=== PATIENT | male | born 1940 ===

== ENCOUNTER 2023-03-12 17:54 | Inpatient (IN) | payer OTHER, SELFPAY ==
--- NOTE | ~2023-03-12 | XR_ITS ---
EXAMINATION: XR CHEST CLINICAL INFORMATION: Low tube, pneumonia. COMPARISON: Chest 03/12/2023 TECHNIQUE: Frontal view of the chest was obtained. FINDINGS: The lungs are well-expanded with patchy opacity seen in the right lung likely pneumonia. The left lung is clear. The heart size and pulmonary vascularity is normal. No gross bony abnormality seen. There is solitary intraspinal electrode noted. XR/XR chest 1V IMPRESSION: Patchy opacity right lung likely infiltrate versus atelectasis.
--- NOTE | ~2023-03-12 | XR_ITS ---
EXAMINATION: XR CHEST CLINICAL INFORMATION: Cough. COMPARISON: None available. TECHNIQUE: Frontal view of the chest was obtained. FINDINGS: The cardiomediastinal silhouette is within normal limits. There is diffuse right-sided infiltrate change. The left lung is clear. The bony structures and soft tissues are unremarkable. XR/XR chest 1V IMPRESSION: Diffuse right lung infiltrate most consistent with pneumonia.
[2023-03-12 18:01] VITALS: BP 140/74; BP 142/78; PULSE 110; PULSE 95; RESP 29; O2SAT 90; O2SAT 93; BMI 25.3
[2023-03-12 18:08] VITALS: BP 143/70; PULSE 122; RESP 27; O2SAT 94
--- NOTE | 2023-03-12 18:10 | ED_ITS ---
HPI - General Adult General Chief complaint: Fever Stated complaint: fever,wheezing,coughing,hyperglycemia Time Seen by Provider: 03/12/23 18:04 Source: EMS and RN notes reviewed Mode of arrival: EMS Limitations: altered mental status History of Present Illness HPI narrative: Patient came from [facility] with history of right MCA CVA ,dysphagia and aphasia paroxysmal AFib not on anticoagulation, systolic heart failure, COPD came here for high-grade 103 degrees with hypoxia saturating 85% at room air blood sugar reading high on arrival POC was 444 no vomiting no diarrhea limited HPI because of aphasia Related Data Home Medications Medication Instructions Recorded Confirmed amantadine HCl 50 mg/5 mL oral 100 mg PO DAILY 03/12/23 03/12/23 solution aspirin 81 mg chewable tablet 81 mg PO DAILY 03/12/23 03/12/23 cyanocobalamin (vitamin B-12) 100 100 mcg PO DAILY 03/12/23 03/12/23 mcg tablet famotidine 20 mg tablet 20 mg PO BID 03/12/23 03/12/23 fluticasone propionate 115 2 puff inhalation BID 03/12/23 03/12/23 mcg-salmeterol 21 mcg/actuation HFA inhaler (Advair HFA) hydroxyzine HCl 10 mg tablet 10 mg PO TID PRN PRURITIS 03/12/23 03/12/23 insulin glargine 100 unit/mL (3 10 unit subcut QPM 03/12/23 03/12/23 mL) subcutaneous pen insulin lispro 100 unit/mL 0 sliding scale dose subcut TIDAC 03/12/23 03/12/23 subcutaneous pen levothyroxine 50 mcg tablet 50 mcg PO DAILY 03/12/23 03/12/23 magnesium oxide 400 mg PO DAILY 03/12/23 03/12/23 melatonin 3 mg tablet 3 mg PO BEDTIME 03/12/23 03/12/23 metformin 1,000 mg tablet 1,000 mg PO BID 03/12/23 03/12/23 metoprolol tartrate 25 mg tablet 25 mg PO BID 03/12/23 03/12/23 sertraline 50 mg tablet 50 mg PO DAILY 03/12/23 03/12/23 tamsulosin 0.4 mg capsule 0.4 mg PO BEDTIME 03/12/23 03/12/23 thiamine HCl (vitamin B1) 100 mg 100 mg PO DAILY 03/12/23 03/12/23 tablet Allergies Allergy/AdvReac Type Severity Reaction Status Date / Time latex Allergy Unknown Unknown Verified 03/12/23 18:15 atorvastatin [From Lipitor] AdvReac Unknown Unknown Verified 03/12/23 18:15 Review of Systems 2 Review of Systems: Yes Unobtainable due to mental condition [facility] Past Medical History Medical History (Updated 03/13/23 @ 01:11 by Jae Babb MD) Type 2 diabetes mellitus Hypertension Aphasia COPD (chronic obstructive pulmonary disease) Paroxysmal A-fib Chronic ischemic right MCA stroke Social History Social History Alcohol intake: never Smoked in Last 30 Days: No Use of substances other than those prescribed or required for medical reasons: No Advance Directives: No Advance Directives Information Provided: No Physical Exam ED Vital Signs: Vital Signs - 24 hr 03/12/23 18:01 03/12/23 18:08 03/12/23 18:16 Temperature 102.3 F H Pulse Rate 110 H 122 H Respiratory Rate 29 H 27 H Blood Pressure 140/74 H 143/70 H Pulse Oximetry 90 L 94 Oxygen Delivery Method Room Air Oxymask Oxygen Flow Rate 4 03/12/23 20:56 Temperature 100.6 F H Pulse Rate 102 H Respiratory Rate 20 Blood Pressure 102/56 L Pulse Oximetry 96 Oxygen Delivery Method Oxymask Oxygen Flow Rate 4 BMI result Body Mass Index 25.3 Appearance: Alert. And awake aphasic. No acute distress. Eyes: PERRLA, No Nystagmus ENT: Pharynx normal. Oral Mucosa moist Neck: Normal inspection. Neck supple. CVS: Tachycardia++ irregular irregular rate no murmur or gallop Pulses normal. Respiratory: No respiratory distress. Equal air entry bilateral, bilateral crackles++ Abdomen: Soft and nontender. Bowel sounds are present, no mass palpable, no CVA tenderness Skin: Skin warm and dry. Normal skin color. Normal skin turgor. Extremities: No lower extremity edema. No calf tenderness Neuro: Alert and awake left-sided weakness aphasic Medications Administered Generic Name Dose Route Start Last Admin Trade Name Freq PRN Reason Stop Dose Admin Insulin Human Lispro 0 unit 03/13/23 00:15 03/13/23 00:47 Insulin Lispro 100 Unit/Ml 3 Ml Vial SUBCUT Not Given [facility]AC[facility] Protocol Discontinued Medications Generic Name Dose Route Start Last Admin Trade Name Reyes PRN Reason Stop Dose Admin Acetaminophen 650 mg 03/12/23 18:18 03/12/23 19:20 Acetaminophen Supp 650 Mg Supp.Rect NM 03/12/23 18:19 650 mg ONCE ONE Administration Sodium Chloride 2,500 mls @ 833.3333 mls/hr 03/12/23 18:19 03/12/23 20:56 Ns IV 03/12/23 21:18 Infused .Q3H STA Infusion Ceftriaxone Sodium 1 gm/ 50 mls @ 100 mls/hr 03/12/23 18:19 03/12/23 19:52 Sodium Chloride IV 03/12/23 18:48 Infused ONCE ONE Infusion Azithromycin 500 mg/ Sodium 250 mls @ 125 mls/hr 03/12/23 20:18 03/12/23 23:17 Chloride IV 03/12/23 22:17 Infused ONCE ONE Infusion Insulin Human Lispro 14 unit 03/12/23 19:04 03/12/23 19:20 Insulin Lispro 100 Unit/Ml 3 Ml Vial SUBCUT 03/12/23 19:05 14 unit ONCE ONE Administration Medical Decision Making Medical Decision Making [facility] Narrative: Patient with right lung infiltrate consistent with pneumonia as a cause of the fever started on IV antibiotic Rocephin and Zithromax IV fluids admit for pneumonia with sepsis patient also has atrial fibrillation with rapid ventricular rate will give Lopressor Differential Diagnosis Differential Diagnoses: The differential diagnosis associated with the presentation includes Sepsis/pneumonia/UTI/hyperglycemia/a fib Admission/Observation Consideration of admission/observation: Escalation of care including admission/observation considered Consult Healthcare Provider Management of the patient was discussed with: Hospitalist Lab Data [facility] Lab Attestation statement: I reviewed the patient's lab results. 03/12/23 18:40 03/12/23 18:40 Labs: Lab Results 03/12/23 03/12/23 03/12/23 Range/Units 18:11 18:35 18:40 WBC 12.6 H (4.8-10.8) X10*3/uL RBC 4.39 L (4.60-5.80) X10*6/uL Hgb 12.2 L (14.0-18.0) g/dl Hct 39.1 L (42.0-52.0) % MCV 89.1 (80.0-98.0) fL MCH 27.8 (27.0-33.0) pg MCHC 31.2 (31.0-36.0) g/dl RDW 16.9 H (11.0-16.0) % Plt Count 230 (160-400) X10*3/uL MPV 13.5 H (9.4-12.4) fL Immature Gran % (Auto) Cancelled Neut % (Auto) Cancelled Lymph % (Auto) Cancelled [place] % (Auto) Cancelled Eos % (Auto) Cancelled Baso % (Auto) Cancelled Lymph # (Auto) Cancelled [place] # (Auto) Cancelled Eos # (Auto) Cancelled Baso # (Auto) Cancelled Abs Immat Gran (auto) Cancelled Absolute Neuts (auto) Cancelled Absolute Nucleated RBC 0.020 H (0.0-0.012) X10*3/uL Nucleated RBC % (auto) 0.2 (0.0-0.2) /100WBC Neutrophils % (Manual) 78 H (45-73) % Band Neutrophils % 9 H (3-5) % Lymphocytes % (Manual) 4 L (20-40) % Monocytes % (Manual) 8 (2-11) % Myelocytes % 1 % Abs Neuts (Manual) 11.0 H (2.0-8.3) X10*3/uL Lymphocytes # (Manual) 0.5 L (1.2-4.9) X10*3/uL Monocytes # (Manual) 1.0 (0.1-1.2) X10*3/uL Myelocytes # 0.1 X10*/uL Platelet Estimate NORMAL (NORMAL) Large Platelets PRESENT Plt Morphology Comment NOTED RBC Morphology NORMAL PT 15.0 H (11.1-13.3) SEC INR 1.2 H (0.9-1.1) APTT 31.1 (26.0-36.4) SEC VBG pH 7.46 H (7.32-7.43) VBG pCO2 45 mmHg VBG pO2 33 mmHg VBG HCO3 33 H (22-26) mmol/L VBG O2 Saturation 50.0 % VBG Base Excess 8.2 mmol/L Sodium 142 (135-145) mmol/L Potassium 4.4 (3.3-5.1) mmol/L Chloride 106 (96-108) mmol/L Carbon Dioxide 26 (22-29) mmol/L Anion Gap 14 (12-20) BUN 35 H (9-16) mg/dL Creatinine 1.12 (0.5-1.4) mg/dL Estim Creat Clear Calc 44.2 Estimated GFR > 60 POC Glucose 444 H* (60-115) mg/dL Random Glucose 520 H* (60-115) mg/dL Lactic Acid 2.0 (0.5-2.0) mmol/L Calcium 10.5 H (8.4-10.2) mg/dL Magnesium 1.9 (1.6-2.6) mg/dL Total Bilirubin 0.5 (0.0-1.0) mg/dL AST 14 (5-37) U/L ALT 9 (0-40) U/L Alkaline Phosphatase 150 H (39-117) U/L Troponin I High Sens 21.7 (<3.5-35.0) ng/L B-Natriuretic Peptide 460 H (<100) pg/mL Total Protein 7.6 (6.5-8.0) g/dL Albumin 3.4 L (3.5-5.0) g/dL Urine Color Urine Appearance Urine pH (5.0-9.0) Ur Specific [place] (1.005-1.025) Urine Protein (Neg-Trace) mg/dL Urine Glucose (UA) (Negative) mg/dL Urine Ketones (Negative) mg/dL Urine Blood (Negative) Urine Nitrite (Negative) Ur Leukocyte Esterase (Negative) Urine RBC (0-2) /HPF Urine WBC (0-5) /HPF Ur Squamous Epith Cells (0-2) /HPF Urine Bacteria (None Seen) Hyaline Casts (0-2) /LPF Influenza Type A (PCR) NEGATIVE (Negative) Influenza Type B (PCR) NEGATIVE (Negative) RSV RNA Qual (PCR) NEGATIVE (Negative) SARS-CoV-2 RNA (RT-PCR) NEGATIVE (Negative) 03/12/23 03/12/23 Range/Units 21:20 23:15 WBC (4.8-10.8) X10*3/uL RBC (4.60-5.80) X10*6/uL Hgb (14.0-18.0) g/dl Hct (42.0-52.0) % MCV (80.0-98.0) fL MCH (27.0-33.0) pg MCHC (31.0-36.0) g/dl RDW (11.0-16.0) % Plt Count (160-400) X10*3/uL MPV (9.4-12.4) fL Immature Gran % (Auto) Neut % (Auto) Lymph % (Auto) [place] % (Auto) Eos % (Auto) Baso % (Auto) Lymph # (Auto) [place] # (Auto) Eos # (Auto) Baso # (Auto) Abs Immat Gran (auto) Absolute Neuts (auto) Absolute Nucleated RBC (0.0-0.012) X10*3/uL Nucleated RBC % (auto) (0.0-0.2) /100WBC Neutrophils % (Manual) (45-73) % Band Neutrophils % (3-5) % Lymphocytes % (Manual) (20-40) % Monocytes % (Manual) (2-11) % Myelocytes % % Abs Neuts (Manual) (2.0-8.3) X10*3/uL Lymphocytes # (Manual) (1.2-4.9) X10*3/uL Monocytes # (Manual) (0.1-1.2) X10*3/uL Myelocytes # X10*/uL Platelet Estimate (NORMAL) Large Platelets Plt Morphology Comment RBC Morphology PT (11.1-13.3) SEC INR (0.9-1.1) APTT (26.0-36.4) SEC VBG pH (7.32-7.43) VBG pCO2 mmHg VBG pO2 mmHg VBG HCO3 (22-26) mmol/L VBG O2 Saturation % VBG Base Excess mmol/L Sodium (135-145) mmol/L Potassium (3.3-5.1) mmol/L Chloride (96-108) mmol/L Carbon Dioxide (22-29) mmol/L Anion Gap (12-20) BUN (9-16) mg/dL Creatinine (0.5-1.4) mg/dL Estim Creat Clear Calc Estimated GFR POC Glucose 273 H (60-115) mg/dL Random Glucose (60-115) mg/dL Lactic Acid (0.5-2.0) mmol/L Calcium (8.4-10.2) mg/dL Magnesium (1.6-2.6) mg/dL Total Bilirubin (0.0-1.0) mg/dL AST (5-37) U/L ALT (0-40) U/L Alkaline Phosphatase (39-117) U/L Troponin I High Sens (<3.5-35.0) ng/L B-Natriuretic Peptide (<100) pg/mL Total Protein (6.5-8.0) g/dL Albumin (3.5-5.0) g/dL Urine Color Dark Yellow Urine Appearance Cloudy Urine pH 5.5 (5.0-9.0) Ur Specific [place] >= 1.030 H (1.005-1.025) Urine Protein 100 (2+) H (Neg-Trace) mg/dL Urine Glucose (UA) 250 H (Negative) mg/dL Urine Ketones Trace (Negative) mg/dL Urine Blood Large (3+) H (Negative) Urine Nitrite Negative (Negative) Ur Leukocyte Esterase Small (1+) H (Negative) Urine RBC >20 H (0-2) /HPF Urine WBC 21-50 (0-5) /HPF Ur Squamous Epith Cells 11-20 (0-2) /HPF Urine Bacteria None Seen (None Seen) Hyaline Casts 6-10 (0-2) /LPF Influenza Type A (PCR) (Negative) Influenza Type B (PCR) (Negative) RSV RNA Qual (PCR) (Negative) SARS-CoV-2 RNA (RT-PCR) (Negative) Independent Interpretation I performed an independent interpretation of an: EKG Interpretation: Atrial fibrillation with fast ventricular rate of 114 beats per minute LVH no acute ST-T no acute ischemia Radiology Impression Discussion of test interpretation with radiology: I have reviewed the radiologist's reading. Radiologist Impression: XR/XR chest 1V IMPRESSION: Diffuse right lung infiltrate most consistent with pneumonia. Critical Care Time Critical Care Time Critical Care Time: Yes Total Critical Care Time: 65 Attestation: The patient was critically ill with a high probability of imminent or life threatening deterioration. I spent greater than 70 minutes of discontinuous time evaluating the patient,delivering critical care at the bedside, discussing and evaluating pertinent data with consultants. Critical care time does not include time spent performing separately billable procedures or teaching. Total time spent performing critical care was 65 minutes. Discharge Plan Discharge Clinical Impression: Pneumonia, Sepsis, Atrial fibrillation with rapid ventricular response Patient Disposition: Admitted As Inpatient
[2023-03-12 18:15] LABS: Glucose, Whole Blood 444 mg/dL (60-115)
[2023-03-12 18:16] VITALS: TEMP 39.1
--- NOTE | 2023-03-12 18:18 | ECG_ITS ---
Test Reason : SEPSIS Blood Pressure : / mmHG Vent. Rate : 114 BPM Atrial Rate : 000 BPM P-R Int : 000 ms QRS Dur : 098 ms QT Int : 324 ms P-R-T Axes : 000 -20 095 degrees QTc Int : 446 ms Atrial fibrillation with rapid ventricular response Minimal voltage criteria for LVH, may be normal variant ( Javed product ) Abnormal QRS-T angle, consider primary T wave abnormality Abnormal ECG No previous ECGs available Referred By: Jae Babb Electronically Signed By:GISELLE VALDEZ
[2023-03-12] MEDS: 0.9 % Sodium Chloride 2,500 ML 833.33 ML IV (18:43)
[2023-03-12 18:48] LABS: Venous Blood Gas Refer to POC result
[2023-03-12 18:53] LABS: VBG Base Excess 8.2 mmol/L; VBG HCO3 33 mmol/L (22-26); VBG pCO2 45 mmHg; VBG pH 7.46 (7.32-7.43); VBG pO2 33 mmHg
[2023-03-12 19:04] LABS: Alanine Aminotransferase 9 U/L (0-40); Albumin Level 3.4 g/dL (3.5-5.0); Alkaline Phosphatase 150 U/L (39-117); Anion Gap 14 (12-20); Aspartate Amino Transferase 14 U/L (5-37); Bilirubin Total 0.5 mg/dL (0.0-1.0); Blood Urea Nitrogen 35 mg/dL (9-16); Calcium 10.5 mg/dL (8.4-10.2); Carbon Dioxide 26 mmol/L (22-29); Chloride 106 mmol/L (96-108); Creatinine Clr Calc Pharmacy 44.2; Estimated Glomerular Filt Rate > 60; Glucose Random 520 mg/dL (60-115); Magnesium 1.9 mg/dL (1.6-2.6); Potassium 4.4 mmol/L (3.3-5.1); Sodium 142 mmol/L (135-145); Total Protein 7.6 g/dL (6.5-8.0)
[2023-03-12 19:08] LABS: B Type Natriuretic Peptide 460 pg/mL (<100); Troponin-I High Sensitivity 21.7 ng/L (<3.5-35.0)
[2023-03-12 19:13] LABS: INTERNATIONAL NORM RATIO 1.2 (0.9-1.1)
[2023-03-12 19:16] LABS: Partial Thromboplastin Time 31.1 SEC (26.0-36.4)
[2023-03-12] MEDS: cefTRIAXone sodium 1 GM in 0.9 % Sodium Chloride 50 ML IV (19:20)
[2023-03-12] MEDS: Acetaminophen Supp 650 MG SUPP.RECT PR (19:20)
[2023-03-12] MEDS: Insulin Lispro 100 UNIT/ML 3 ML VIAL 14 UNIT SUBCUT (19:20)
[2023-03-12 19:24] LABS: Influenza A PCR NEGATIVE (Negative); Influenza B PCR NEGATIVE (Negative); Resp Syncy Virus RNA Qual PCR NEGATIVE (Negative); SARS COV2 PCR INHOUSE NEGATIVE (Negative)
[2023-03-12 19:27] LABS: Hematocrit 39.1 % (42.0-52.0); Hemoglobin 12.2 g/dl (14.0-18.0); Mean Corpuscular HGB Conc 31.2 g/dl (31.0-36.0); Mean Corpuscular Hemoglobin 27.8 pg (27.0-33.0); Mean Corpuscular Volume 89.1 fL (80.0-98.0); Mean Platelet Volume 13.5 fL (9.4-12.4); NRBC Pct Auto 0.2 /100WBC (0.0-0.2); Platelet Count 230 X10*3/uL (160-400); Red Blood Count 4.39 X10*6/uL (4.60-5.80); Red Cell Distribution Width 16.9 % (11.0-16.0); White Blood Count 12.6 X10*3/uL (4.8-10.8)
[2023-03-12 19:32] LABS: PLT ABN DIST 1
[2023-03-12 20:01] LABS: Lymphocytes Absolute Manual 0.5 X10*3/uL (1.2-4.9); Lymphocytes Percent Manual 4 % (20-40); Monocytes Percent Manual 8 % (2-11); Myelocytes Absolute 0.1 X10*/uL; Myelocytes Percent 1 %
[2023-03-12 20:02] LABS: Band Neutrophils Percent 9 % (3-5)
[2023-03-12 20:03] LABS: Neutrophils Percent Manual 78 % (45-73)
[2023-03-12 20:04] LABS: Large Platelet PRESENT; Platelet Estimate NORMAL (NORMAL); Platelet Morphology Comment NOTED; RBC Morphology NORMAL
--- NOTE | 2023-03-12 20:35 | PHA.MEDREC ---
Pharmacy Consult ? Medication Reconciliation Pharmacy has completed the medication reconciliation. Patient came from [facility] with medication list. Inna Liu, KarinaD
[2023-03-12] MEDS: Azithromycin 500 MG in 0.9 % Sodium Chloride 250 ML 125 MG IV (20:55)
[2023-03-12 20:56] VITALS: BP 102/56; PULSE 102; RESP 20; TEMP 38.1; O2SAT 96
[2023-03-12 21:26] LABS: Glucose, Whole Blood 273 mg/dL (60-115)
[2023-03-12 23:23] LABS: Appearance Urine Cloudy; Color Urine Dark Yellow; Glucose Urine UA 250 mg/dL (Negative); Leukocyte Esterase Urine Small (1+) (Negative); Nitrite Urine Negative (Negative); PH 5.5 (5.0-9.0); Specific Gravity - Urine >= 1.030 (1.005-1.025); UMIC TRIGGER UACC YES; Urine Blood Large (3+) (Negative); Urine Ketones Trace mg/dL (Negative); Urine Protein 100 (2+) mg/dL (Neg-Trace)
[2023-03-12 23:36] LABS: Bacteria Urine None Seen (None Seen); RBC Urine >20 /HPF (0-2); UACC Culture Trigger YES; WBC Urine 21-50 /HPF (0-5)
[2023-03-13] VITALS (12 sets, daily range): BP systolic 95–124; BP diastolic 47–74; PULSE 77–108; RESP 16–22; TEMP 36.1–38; O2SAT 90–98; BMI 23.2
--- NOTE | 2023-03-13 00:12 | P.HPHOSP_ITS ---
History of Present Illness Date of Service: 03/13/23 Chief Complaint: febrile, short of breath patient is a resident of [facility], [facility] historian at baseline, with history of CVA, hypertension, dysarthria, dysphagia, paroxysmal AFib, BPH, COPD, diabetes, who was sent from [facility] for evaluation of shortness of breath, hypoxic as well as febrile. History is obtained from chart and ED physician. It appears that patient had a fever of 103 at the facility, he was also found to have an O2 in the 80s, was placed on 2 L of oxygen with oxygen improving to 89%. Therefore patient was brought into the hospital. Unable to obtain complete review of system due to patient's dementia and baseline dysarthria On arrival to the ED patient found to have a fever of 102.3, heart rate of 122, respiratory rate of 27, satting 94% on OxyMask Labs are significant for WBC count of tell 0.6, hemoglobin of 12.2, glucose of 500, BNP of 460 no previous for comparison, and UA positive for leukocyte E[place], WBC, bacteria Chest x-ray showed diffuse right lung infiltrate consistent with pneumonia RSV influenza a and COVID-19 negative patient will be admitted for further management Review of Systems 2 Review of Systems: Yes Unobtainable due to mental condition and Unobtainable due to mental status [facility] Medical History Type 2 diabetes mellitus Hypertension Aphasia COPD (chronic obstructive pulmonary disease) Paroxysmal A-fib Chronic ischemic right MCA stroke Social History Alcohol intake: never Smoked in Last 30 Days: No Use of substances other than those prescribed or required for medical reasons: No Advance Directives: No Advance Directives Information Provided: No Meds Allergies Allergy/AdvReac Type Severity Reaction Status Date / Time latex Allergy Unknown Unknown Verified 03/12/23 18:15 atorvastatin [From Lipitor] AdvReac Unknown Unknown Verified 03/12/23 18:15 Home Medications Medication Instructions Recorded Confirmed Last Taken Type amantadine HCl 50 mg/5 mL oral 100 mg PO DAILY 03/12/23 03/12/23 03/12/23 History solution aspirin 81 mg chewable tablet 81 mg PO DAILY 03/12/23 03/12/23 03/12/23 History cyanocobalamin (vitamin B-12) 100 100 mcg PO DAILY 03/12/23 03/12/23 03/12/23 History mcg tablet famotidine 20 mg tablet 20 mg PO BID 03/12/23 03/12/23 03/12/23 History fluticasone propionate 115 2 puff inhalation BID 03/12/23 03/12/23 03/12/23 History mcg-salmeterol 21 mcg/actuation HFA inhaler (Advair HFA) hydroxyzine HCl 10 mg tablet 10 mg PO TID PRN PRURITIS 03/12/23 03/12/23 Unknown History insulin glargine 100 unit/mL (3 10 unit subcut QPM 03/12/23 03/12/23 03/11/23 History mL) subcutaneous pen insulin lispro 100 unit/mL 0 sliding scale dose subcut TIDAC 03/12/23 03/12/23 03/12/23 History subcutaneous pen levothyroxine 50 mcg tablet 50 mcg PO DAILY 03/12/23 03/12/23 03/12/23 History magnesium oxide 400 mg PO DAILY 03/12/23 03/12/23 03/12/23 History melatonin 3 mg tablet 3 mg PO BEDTIME 03/12/23 03/12/23 03/11/23 History metformin 1,000 mg tablet 1,000 mg PO BID 03/12/23 03/12/23 03/12/23 History metoprolol tartrate 25 mg tablet 25 mg PO BID 03/12/23 03/12/23 03/12/23 History sertraline 50 mg tablet 50 mg PO DAILY 03/12/23 03/12/23 03/12/23 History tamsulosin 0.4 mg capsule 0.4 mg PO BEDTIME 03/12/23 03/12/23 03/11/23 History thiamine HCl (vitamin B1) 100 mg 100 mg PO DAILY 03/12/23 03/12/23 03/12/23 History tablet Physical Exam 2 Vital Signs and Narrative: Vital Signs: Last Vital Signs Temp 100.6 F H 03/12/23 20:56 Pulse 102 H 03/12/23 20:56 Resp 20 03/12/23 20:56 BP 102/56 L 03/12/23 20:56 Pulse Ox 96 03/12/23 20:56 O2 Del Method Oxymask 03/12/23 20:56 O2 Flow Rate 4 03/12/23 20:56 BMI result Body Mass Index 25.3 Const: Other: dysarthria, unable to get much history from the patient General: no acute distress Orientation/consciousness: patient oriented x3 Eyes: General: appearance normal, both eyes and all related structures Resp: Other: rhonchi best heard on the right lung Effort & Inspection: normal respiratory effort Auscultation: clear to auscultation bilaterally Cardio: Rate: regular rate Rhythm: regular rhythm GI: Palpation (GI): Soft to palpation Auscultation: normal bowel sounds Skin: General skin exam: no rashes or lesions noted Neuro: General: patient oriented x3 Cognition (Neuro): normal cognition Extrem: General: Yes normal to inspection and Yes no pedal edema Results Labs 03/12/23 18:40 03/12/23 18:40 Labs: Laboratory Results - last 24 hr 03/12/23 03/12/23 03/12/23 18:11 18:35 18:40 MCV 89.1 MCH 27.8 MCHC 31.2 RDW 16.9 H Plt Count 230 MPV 13.5 H Immature Gran % (Auto) Cancelled Neut % (Auto) Cancelled Lymph % (Auto) Cancelled [place] % (Auto) Cancelled Eos % (Auto) Cancelled Baso % (Auto) Cancelled Lymph # (Auto) Cancelled [place] # (Auto) Cancelled Eos # (Auto) Cancelled Baso # (Auto) Cancelled Abs Immat Gran (auto) Cancelled Absolute Neuts (auto) Cancelled Absolute Nucleated RBC 0.020 H Nucleated RBC % (auto) 0.2 Neutrophils % (Manual) 78 H Band Neutrophils % 9 H Lymphocytes % (Manual) 4 L Monocytes % (Manual) 8 Myelocytes % 1 Abs Neuts (Manual) 11.0 H Lymphocytes # (Manual) 0.5 L Monocytes # (Manual) 1.0 Myelocytes # 0.1 Platelet Estimate NORMAL Large Platelets PRESENT Plt Morphology Comment NOTED RBC Morphology NORMAL PT 15.0 H INR 1.2 H APTT 31.1 VBG pH 7.46 H VBG pCO2 45 VBG pO2 33 VBG HCO3 33 H VBG O2 Saturation 50.0 VBG Base Excess 8.2 Anion Gap 14 Estim Creat Clear Calc 44.2 Estimated GFR > 60 POC Glucose 444 H* Random Glucose 520 H* Lactic Acid 2.0 Calcium 10.5 H Magnesium 1.9 Total Bilirubin 0.5 AST 14 ALT 9 Alkaline Phosphatase 150 H B-Natriuretic Peptide 460 H Total Protein 7.6 Albumin 3.4 L Urine Color Urine Appearance Urine pH Ur Specific [place] Urine Protein Urine Glucose (UA) Urine Ketones Urine Blood Urine Nitrite Ur Leukocyte Esterase Urine RBC Urine WBC Ur Squamous Epith Cells Urine Bacteria Hyaline Casts Influenza Type A (PCR) NEGATIVE Influenza Type B (PCR) NEGATIVE RSV RNA Qual (PCR) NEGATIVE SARS-CoV-2 RNA (RT-PCR) NEGATIVE 03/12/23 03/12/23 21:20 23:15 MCV MCH MCHC RDW Plt Count MPV Immature Gran % (Auto) Neut % (Auto) Lymph % (Auto) [place] % (Auto) Eos % (Auto) Baso % (Auto) Lymph # (Auto) [place] # (Auto) Eos # (Auto) Baso # (Auto) Abs Immat Gran (auto) Absolute Neuts (auto) Absolute Nucleated RBC Nucleated RBC % (auto) Neutrophils % (Manual) Band Neutrophils % Lymphocytes % (Manual) Monocytes % (Manual) Myelocytes % Abs Neuts (Manual) Lymphocytes # (Manual) Monocytes # (Manual) Myelocytes # Platelet Estimate Large Platelets Plt Morphology Comment RBC Morphology PT INR APTT VBG pH VBG pCO2 VBG pO2 VBG HCO3 VBG O2 Saturation VBG Base Excess Anion Gap Estim Creat Clear Calc Estimated GFR POC Glucose 273 H Random Glucose Lactic Acid Calcium Magnesium Total Bilirubin AST ALT Alkaline Phosphatase B-Natriuretic Peptide Total Protein Albumin Urine Color Dark Yellow Urine Appearance Cloudy Urine pH 5.5 Ur Specific [place] >= 1.030 H Urine Protein 100 (2+) H Urine Glucose (UA) 250 H Urine Ketones Trace Urine Blood Large (3+) H Urine Nitrite Negative Ur Leukocyte Esterase Small (1+) H Urine RBC >20 H Urine WBC 21-50 Ur Squamous Epith Cells 11-20 Urine Bacteria None Seen Hyaline Casts 6-10 Influenza Type A (PCR) Influenza Type B (PCR) RSV RNA Qual (PCR) SARS-CoV-2 RNA (RT-PCR) Imaging Radiologist's Impressions: Impressions Chest X-Ray 03/12/23 18:53 IMPRESSION: Diffuse right lung infiltrate most consistent with pneumonia. Assessment and Plan (1) Sepsis: Qualifiers: Sepsis type: sepsis due to unspecified organism Sepsis acute organ dysfunction status: without acute organ dysfunction Qualified Code(s): A41.9 - Sepsis, unspecified organism Status: Acute (2) Pneumonia: Qualifiers: Pneumonia type: due to unspecified organism Laterality: right Lung location: unspecified part of lung Qualified Code(s): J18.9 - Pneumonia, unspecified organism Status: Acute (3) Atrial fibrillation with rapid ventricular response: Status: Acute (4) Hyperglycemia due to diabetes mellitus: Status: Acute Plan 83-year-old male with past medical history of CVA, dysphagia, dysarthria comes into the hospital after facility found him to have hypoxia, and fever found to have # sepsis - secondary to pneumonia - has elevated temp, tachycardic, tachypneic - will treat with IV antibiotic - follow cultures # pneumonia - aspiration versus acquired - patient has history of dysphasia - will treat with Zosyn to cover for aspiration organisms - follow cultures # AFib with IV - secondary to above - resolved - resume home aspirin, metoprolol, # hyperglycemia - due to diabetes - will place patient on low-dose sliding scale insulin, hold metformin, continue home insulin # acute UTI - will treat with IV antibiotic - follow cultures # elevated BNP - clinically appears euvolemic - no baseline for comparison - no documented history of - monitor respiratory status and volume status - given 1 dose of Lasix- may require more depending on status - low-sodium diet, strict I&O # Dysphagia - Speech consulted to r/o aspiration - keep npo given patient's need for further management of acute infection patient require minimum 2 nights inpatient hospital stay for further management and monitoring Time Spent With Patient Time: Total time managing care of this patient today ____ minutes. Quality Stroke Does the patient have a stroke diagnosis?: No VTE Prior VTE?: No VTE Risk Level:: Medical - moderate - high VTE Device Contraindication: Treatment Not Indicated VTE Drug Contraindication: N/A - Med Ordered
[2023-03-13 00:50] LABS: Glucose, Whole Blood 72 mg/dL (60-115)
[2023-03-13] MEDS: Metoprolol Tartrate 5 MG/5 ML VIAL IVPUSH (01:27)
--- NOTE | 2023-03-13 07:00 | CA_ITS ---
Transthoracic Echocardiogram Patient (Last, First, Middle): Edgar Arrieta, Gender: Male Date of : 1940 Age: 83 Procedure Date: 03/13/2023 Procedure Type: Transthoracic Echocardiogram Location: ER Height: 165.1 cm Weight: 68.95 kg BSA: 1.76 m2 Heart Rate: bpm BP: 99 / 47 mmHg Hand Finisher: TO Referring MD: Michael Brady MD Hand Miter Operator: Damon Dumont MD Symptoms: CHF? Study Quality: Fair Conclusions: - 1. Mildly reduced LV ejection fraction 45-50% 2. Mildly dilated right ventricle with reduced systolic function 3. Severely dilated left atrium 4. Mild aortic and mitral regurgitation 5. Mildly dilated ascending aorta 4.1 cm 6. Elevated right atrial pressures 7. No gross pericardial effusion Findings Procedure Information The study quality is limited by the patients inability to tolerate the test. Left Ventricle Normal left ventricular cavity size. There is normal left ventricular wall thickness. The left ventricular systolic function is mildly decreased. The visually estimated ejection fraction is between 45-50%. Diastolic function is indeterminate on the basis of available data. Right Ventricle Mildly increased right ventricular cavity size. There is moderately decreased right ventricular systolic function. Atria The left atrium is severely dilated. Interatrial shunt cannot be excluded. The right atrium is moderately dilated. Aortic Valve There is mild calcification of the aortic valve. There is no aortic valve stenosis. There is mild aortic valve regurgitation. Mitral Valve There is mild anterior and moderate posterior mitral leaflet thickening. The posterior mitral leaflet has restricted mobility. There is mild mitral annular calcification. There is mild mitral valve regurgitation. There is no mitral valve stenosis. Pulmonic Valve The pulmonic valve was not well visualized. Tricuspid Valve Likely normal tricuspid valve structure and function. Tricuspid regurgitation envelope is inadequate for calculation of right ventricular systolic pressure. Moderately elevated right atrial pressure. Great Vessels The pulmonary artery was not well visualized. There is mild dilatation of the ascending aorta. Venous The inferior vena cava is mildly dilated and collapses less than 50% with inspiration. Pericardium/Pleural There is no evidence of pericardial effusion. Prior Study Comparison No prior study available for comparison. Measurements 2D Linear Measurements IVSd: 1.14 0.6-0.9/0.6-1.0 cm LVIDd: 4.90 3.9-5.3/4.2-5.9 cm LVIDd Index: 2.78 2.4-3.2/2.2-3.1 cm/m2 LVIDs: 3.60 2.0-3.6 cm LVPWd: 0.80 0.7-1.1 cm LA Diam: 4.60 2.7-3.8/3.0-4.0 cm LAIDs Index: 2.61 1.5-2.3 cm/m2 LV Mass: 265.82 67-162/88-224 g LV Mass Index: 151.04 43-95/49-115 g/m2 LVOT Diam: 2.40 3.0+(-)1.3 cm 2D Systolic Function EF 4C: 45.80 >55% Mitral Valve MV Pk E: 0.80 MV Decel Time: 167.00 E'Lateral: 11.10 E'Medial: 7.83 E/E' Med: 10.20 E/E' Lat: 7.20 PHT: 49.00 MVA PHT: 4.49 Decel Maury: 4.79 Aortic Valve AoV Pk Den: 1.00 AoV Mn Den: 0.64 AoV VTI: 0.15 AoV Pk Grad: 4.00 Aov Mn Grad: 2.00 GIBRAN Cont.VTI: 2.86 LVOT LVOT Pk Den: 0.56 LVOT Mn Den: 0.35 LVOT VTI: 0.09 LVOT Pk Grad: 1.00 LVOT Mn Grad: 1.00 LVOT Diam: 2.40 LVOT Area: 4.52 Diastolic Function MV Pk E: 0.80 E'Medial: 7.83 E/E' Med: 10.20 E' Laterial: 11.10 E/E' Lat: 7.20 Right Ventricle TAPSE (mm): 11.20 TVS' Den: 8.16 Tricuspid Valve RA Press: 8.00 Great Vessels Aorta Sinus of Valsalva: 3.70 2.0-3.5 cm Ao Asc: 4.10 2.1-3.4 cm Updated in Other Vendor System with Status of Final Damon Dumont MD electronically signed on 03/13/2023 2:54:46 PM with status of Final
[2023-03-13 07:24] LABS: Glucose, Whole Blood 181 mg/dL (60-115)
[2023-03-13] MEDS: Heparin Sodium,Porcine 5,000 UNIT/ML VIAL 5000 UNIT SUBCUT ×2 (08:02→20:49)
[2023-03-13] MEDS: Furosemide 40 MG/4 ML VIAL IVPUSH (08:34)
[2023-03-13] MEDS: Albuterol/Iprat 2.5/0.5MG 3 ML AMPUL.NEB INHALE ×4 (08:37→19:58)
[2023-03-13] MEDS: Piperacillin Sodium/Tazobactam 3.375 GM in 0.9 % Sodium Chloride 50 ML IV ×3 (08:45→19:59)
[2023-03-13] MEDS: Metoprolol Tartrate 25 MG TABLET PO ×2 (09:23→20:49)
--- NOTE | 2023-03-13 09:26 | MHC.CM.PN ---
Addendum entered by Kamila Lewis 03/13/23 09:31: PER HER REQUEST, COPY OF IMM WILL BE MAILED TO [facility] AT THE ADDRESS PROVIDED: [place] [id number] TASK SENT TO REGISTRATION TO ADD ADDRESS TO CHART Original Note: PT IS A LTC RESIDENT OF [facility] HIS LEGAL [facility] IS RENAE JONAS [phone] [facility] WAS CONTACTED, MEDICARE RIGHTS WERE DELIVERED TODAY AT 0925 COPY OF [facility] WAS REQUESTED FROM [facility] PCP DARREL NEVAREZ PT WILL RETURN TO [facility] VIA BLS
[2023-03-13 10:12] LABS: Alanine Aminotransferase 6 U/L (0-40); Albumin Level 3.2 g/dL (3.5-5.0); Alkaline Phosphatase 119 U/L (39-117); Anion Gap 17 (12-20); Aspartate Amino Transferase 11 U/L (5-37); Bilirubin Total 0.7 mg/dL (0.0-1.0); Blood Urea Nitrogen 31 mg/dL (9-16); Calcium 10.4 mg/dL (8.4-10.2); Carbon Dioxide 25 mmol/L (22-29); Chloride 109 mmol/L (96-108); Creatinine Clr Calc Pharmacy 60.4; Estimated Glomerular Filt Rate > 60; Glucose Random 225 mg/dL (60-115); Sodium 147 mmol/L (135-145); Total Protein 7.1 g/dL (6.5-8.0)
--- NOTE | 2023-03-13 12:01 | PC.NURSE ---
Addendum entered by Lurdes Jorge RN 03/13/23 12:12: *Correction: IV R bicep, not L arm* Original Note: assumed care of pt at 0700. report taken from JOSE Christy. pt sleeping upon change of shift. pt woke up and taking off oxymask. pt redirected multiple times. pt with temp sensing sanchez at 98.1 core temperature. pt NPO, Anish approved Metoprolol with pudding but held all other po medications until speech consult. Anish approved holding sliding scale insulin for 181 poc due to NPO status Lawanda, RT trial d/c O2 NC after 0800 breathing treatment - advised when dropped below 88% RA to place pt back on O2 1L and titrate as needed. pt desated 84%-86% and placed back on O2 tirtated to 2L. Lawanda gave 1200 breathing treatment, placed pt back on 2L NC. speech consult completed - puree and nectar diet. 20G IV to L arm, patent. echocardiogram completed with help of tech at bedside to redirect pt. pt currently resting quietly on stretcher in no apparent distress. report given to JOSE Del Toro in [facility]. awaiting transport. plan of care ongoing.
--- NOTE | 2023-03-13 12:38 | MHC.SPEECHCO ---
Bedside Swallow Evaluation completed. Pt passed for his baseline diet of Puree Solids and [place]-Thick Liquids. [employer] will continue to follow.
[2023-03-13 12:43] LABS: Glucose, Whole Blood 237 mg/dL (60-115)
--- NOTE | 2023-03-13 13:11 | PM.EVENT ---
Event Note Date of Service: 03/13/23 Event Note: 83-year-old male with past medical history of CVA, dysphagia, dysarthria comes into the hospital after facility found him to have hypoxia, and fever found to have # sepsis secondary to pneumonia - has elevated temp, tachycardic, tachypneic - aspiration versus acquired, has history of dysphasia - on iv Zosyn to cover for aspiration organisms and IV azithromycin started on 03/13 - follow cultures # AFib with rvr - secondary to above - resolved,on aspirin, metoprolol, # hyperglycemia due to diabetes - on low-dose sliding scale insulin, Lantus, and will hold metformin # acute UTI - will treat with IV antibiotic - follow cultures # elevated BNP - clinically appears euvolemic, no baseline bnp for comparison - monitor respiratory status and volume status # Dysphagia - seen by speech therapy placed on nectar thick liquids and pureed diet given patient's need for further management of acute infection patient require continued inpatient hospital stay Time Spent With Patient Time: Total time managing care of this patient today ____ minutes.
--- NOTE | 2023-03-13 13:30 | PC.NURSE ---
transfered from the main resting in hospital bed. waiting on admission bed
--- NOTE | 2023-03-13 13:40 | MHC.SL.SWA ---
Speech Pathologist Impression: Risk of Aspiration Due to: Medically Fragile Dysphasia Diet Status: Liquid Consistency and Strategies for Safe Swallow: Liquid Intake Recommendation: [employer] Thick Liquid Intake Strategies: No straws Solid Food Consistency: Dietary Recommendations: Pureed (NDD1) Additional Modifications to Solid Foods:No mixed consistencies. Oral Medication Intake: Crushed with Puree Please contact the pharmacy regarding appropriate crushable or liquid drug formulations that are available whenever modified delivery is recommended. Compensatory Strategies and Precautions to be Taken for Safe Swallow: Sitting Upright (90 deg) No Straw Liquids from Cup Small Bites and Sips Alternate Liquids/Solids Supervision While Eating and Drinking for Safe Swallow: Total Assistance (1:1) Foods to Avoid:Mixed consistencis. Swallowing Recommended Treatments: Compens. Strategy Educat. Recommendation for Speech: Outpatient Speech Therapy Comment: Recommend Puree Solids (NDD1) and [employer]-Thick Liquids. Medications Crushed in Puree. Pt will require tray setup assistance and close supervision. Frequency/Duration: Date Range for Service Req: Timeline to reassess: PRN Collar Starcher Clinican/Clinical Fellow: No Supervisory Statement: I have reviewed and agree with the student/clinical fellow's documentation: N/A Speech Language Pathologist: Nael Jane M.A., CCC-TRADE SHOW COORDINATOR
[2023-03-13 16:29] LABS: Glucose, Whole Blood 231 mg/dL (60-115)
[2023-03-13] MEDS: Insulin Lispro 100 UNIT/ML 3 ML VIAL SUBCUT ×2 (17:01→21:09)
[2023-03-13] MEDS: 0.9 % Sodium Chloride Flush 3 ML SYRINGE IVFLUSH ×2 (17:04→20:49)
[2023-03-13 20:35] LABS: Glucose, Whole Blood 256 mg/dL (60-115)
[2023-03-13] MEDS: Azithromycin 500 MG in 0.9 % Sodium Chloride 250 ML 125 MG IV (20:49)
[2023-03-13] MEDS: Famotidine 20 MG TABLET PO (20:49)
[2023-03-13] MEDS: Melatonin 3 MG TABLET PO (20:49)
[2023-03-13] MEDS: Insulin Glargine,Hum.rec.anlog 100 UNIT/ML 10 ML VIAL 10 UNIT SUBCUT (21:10)
[2023-03-14] VITALS (8 sets, daily range): BP systolic 104–144; BP diastolic 56–65; PULSE 74–95; RESP 12–20; TEMP 36–36.8; O2SAT 93–99
[2023-03-14] MEDS: Piperacillin Sodium/Tazobactam 3.375 GM in 0.9 % Sodium Chloride 50 ML IV ×4 (01:16→18:12)
[2023-03-14] MEDS: Levothyroxine Sodium 50 MCG TABLET PO (06:05)
[2023-03-14 07:16] LABS: Glucose, Whole Blood 138 mg/dL (60-115)
[2023-03-14] MEDS: Albuterol/Iprat 2.5/0.5MG 3 ML AMPUL.NEB INHALE ×4 (08:27→19:49)
[2023-03-14] MEDS: Heparin Sodium,Porcine 5,000 UNIT/ML VIAL 5000 UNIT SUBCUT ×2 (08:41→20:59)
[2023-03-14] MEDS: 0.9 % Sodium Chloride Flush 3 ML SYRINGE IVFLUSH (08:42)
[2023-03-14] MEDS: Fluticasone/Vilanterol 100/25 BLST.W.DEV 1 PUFF INHALE (08:50)
[2023-03-14] MEDS: Metoprolol Tartrate 25 MG TABLET PO ×2 (09:44→20:50)
[2023-03-14] MEDS: Aspirin 81 MG TAB.CHEW PO (09:44)
[2023-03-14] MEDS: Sertraline HCL 50 MG TABLET PO (09:44)
[2023-03-14 09:54] LABS: Hematocrit 37.1 % (42.0-52.0); Hemoglobin 11.4 g/dl (14.0-18.0); Mean Corpuscular HGB Conc 30.7 g/dl (31.0-36.0); Mean Corpuscular Hemoglobin 27.9 pg (27.0-33.0); Mean Corpuscular Volume 90.9 fL (80.0-98.0); Mean Platelet Volume 12.4 fL (9.4-12.4); Platelet Count 241 X10*3/uL (160-400); Red Blood Count 4.08 X10*6/uL (4.60-5.80); Red Cell Distribution Width 16.9 % (11.0-16.0); White Blood Count 11.1 X10*3/uL (4.8-10.8)
[2023-03-14 10:10] LABS: Anion Gap 13 (12-20); Blood Urea Nitrogen 32 mg/dL (9-16); Calcium 10.4 mg/dL (8.4-10.2); Carbon Dioxide 32 mmol/L (22-29); Chloride 109 mmol/L (96-108); Creatinine Clr Calc Pharmacy 59.6; Estimated Glomerular Filt Rate > 60; Glucose Random 161 mg/dL (60-115); Potassium 3.2 mmol/L (3.3-5.1); Sodium 151 mmol/L (135-145)
--- NOTE | 2023-03-14 11:11 | P.PNIM_ITS ---
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 Neck supple no JVD. CVS regular rate rhythm, Respiratory lungs right base rhonchi , no respiratory distress, no wheeze Gastrointestinal abdomen soft, non tender, bowel sounds audible, no guarding , no rigidity. Extremities no edema. Neuro aphasia, left hemiparesis with contraction deformity, follow commands Skin no rash Objective Data Active Medications Acetaminophen (Acetaminophen 325 Mg Tablet) 650 mg PO Q6H PRN PRN Reason: Pain, Mild (Pain Scale 1-3) Albuterol/Ipratropium (Albuterol/Iprat 2.5/0.5mg 3 Ml Ampul.Neb) 3 ml INHALE RQ4H PRN PRN Reason: Shortness of Breath/Wheezing Albuterol/Ipratropium (Albuterol/Iprat 2.5/0.5mg 3 Ml Ampul.Neb) 3 ml INHALE RQ4H WHILE AWAKE [facility] Last Admin: 03/14/23 08:27 Dose: 3 ml Documented By: LILIANA Aspirin (Aspirin 81 Mg Tab.Chew) 81 mg PO DAILY [facility] Last Admin: 03/14/23 09:44 Dose: 81 mg Documented By: RAMA Cyanocobalamin (Cyanocobalamin (Vitamin B-12) 100 Mcg Tablet) 100 mcg PO DAILY [facility] Last Admin: 03/14/23 09:47 Dose: Not Given Documented By: RAMA Non-Admin Reason: Patient Refused Dextrose (Dextrose 50 % 25 Gm/50 Ml Syringe) 25 gm IVPUSH Q15M PRN; Protocol PRN Reason: per Hypoglycemia Standing Ord. Docusate Sodium (Docusate Sodium 100 Mg Capsule) 100 mg PO DAILY PRN PRN Reason: Constipation Famotidine (Famotidine 20 Mg Tablet) 20 mg PO BID [facility] Last Admin: 03/14/23 09:48 Dose: Not Given Documented By: RAMA Non-Admin Reason: Patient Refused Fluticasone/Vilanterol (Fluticasone/Vilanterol 100/25 Blst.W.Dev) 1 puff INHALE DAILY [facility] Last Admin: 03/14/23 08:50 Dose: 1 puff Documented By: LILIANA Glucose (Glucose Gel 15 Gm Gel..Gram.) 15 gm PO Q15M PRN; Protocol PRN Reason: per Hypoglycemia Standing Ord. Heparin Sodium (Porcine) (Heparin Sodium,Porcine 5,000 Unit/Ml Vial) 5,000 unit SUBCUT Q12H [facility] Last Admin: 03/14/23 08:41 Dose: 5,000 unit Documented By: RAMA Hydroxyzine HCl (Hydroxyzine Hcl 10 Mg Tablet) 10 mg PO TID PRN PRN Reason: PRURITIS Azithromycin 500 mg/ Sodium (Chloride) 250 mls @ 125 mls/hr IV Q24H [facility] Last Infusion: 03/13/23 22:50 Dose: Infused Documented By: ORIANA Piperacillin Sod/Tazobactam (Sod 3.375 gm/ Sodium Chloride) 50 mls @ 100 mls/hr IV Q6H [facility] Last Infusion: 03/14/23 06:35 Dose: Infused Documented By: ORIANA Insulin Glargine (Insulin Glargine,Hum.Rec.Anlog 100 Unit/Ml 10 Ml Vial) 10 unit SUBCUT BEDTIME [facility] Last Admin: 03/13/23 21:10 Dose: 10 unit Documented By: ORIANA Insulin Human Lispro (Insulin Lispro 100 Unit/Ml 3 Ml Vial) 0 unit SUBCUT QIDACHS [facility]; Protocol Last Admin: 03/14/23 07:49 Dose: Not Given Documented By: RAMA Non-Admin Reason: No Insulin Coverage Levothyroxine Sodium (Levothyroxine Sodium 50 Mcg Tablet) 50 mcg PO DAILY@0630 [facility] Last Admin: 03/14/23 06:05 Dose: 50 mcg Documented By: ORIANA Magnesium Oxide (Magnesium Oxide 400 Mg Tablet) 400 mg PO DAILY [facility] Last Admin: 03/14/23 09:48 Dose: Not Given Documented By: RAMA Non-Admin Reason: Patient Refused Melatonin (Melatonin 3 Mg Tablet) 3 mg PO BEDTIME [facility] Last Admin: 03/13/23 20:49 Dose: 3 mg Documented By: ORIANA Metoprolol Tartrate (Metoprolol Tartrate 25 Mg Tablet) 25 mg PO BID [facility]; Protocol Last Admin: 03/14/23 09:44 Dose: 25 mg Documented By: RAMA Non-Formulary Medication (Amantadine Hcl) 100 mg PO DAILY [facility] Ondansetron HCl (Ondansetron Hcl 4 Mg/2 Ml Vial) 4 mg IVPUSH Q8H PRN PRN Reason: Nausea and Vomiting Sertraline HCl (Sertraline Hcl 50 Mg Tablet) 50 mg PO DAILY [facility] Last Admin: 03/14/23 09:44 Dose: 50 mg Documented By: RAMA Sodium Chloride (0.9 % Sodium Chloride Flush 3 Ml Syringe) 3 ml IVFLUSH QSHIFT [facility] Last Admin: 03/14/23 08:42 Dose: 3 ml Documented By: RAMA Tamsulosin HCl (Tamsulosin Hcl 0.4 Mg Capsule) 0.4 mg PO BEDTIME [facility] Last Admin: 03/13/23 21:12 Dose: Not Given Documented By: ORIANA Non-Admin Reason: unable to crush Thiamine HCl (Thiamine Hcl 100 Mg Tablet) 100 mg PO DAILY [facility] Last Admin: 03/14/23 09:48 Dose: Not Given Documented By: RAMA Non-Admin Reason: Patient Refused Labs 03/14/23 09:22 03/14/23 09:22 Labs: Laboratory Results - last 24 hr 03/13/23 03/13/23 03/13/23 12:39 16:25 20:31 MCV MCH MCHC RDW Plt Count MPV Absolute Nucleated RBC Nucleated RBC % (auto) Anion Gap Estim Creat Clear Calc Estimated GFR POC Glucose 237 H 231 H 256 H Random Glucose Calcium 03/14/23 03/14/23 07:11 09:22 MCV 90.9 MCH 27.9 MCHC 30.7 L RDW 16.9 H Plt Count 241 MPV 12.4 Absolute Nucleated RBC 0.000 Nucleated RBC % (auto) 0.0 Anion Gap 13 Estim Creat Clear Calc 59.6 Estimated GFR > 60 POC Glucose 138 H Random Glucose 161 H Calcium 10.4 H Microbiology Microbiology Results: Microbiology 03/12/23 Unknown Urine Culture - Final Urine Catheterized - Vo Catheter No growth. 03/12/23 19:08 Blood Culture - Preliminary Blood - Venous No growth after 24 hours. 03/12/23 18:40 Blood Culture - Preliminary Blood - Venous No growth after 24 hours. Assessment and Plan (1) Hyperglycemia due to diabetes mellitus: Status: Acute (2) Atrial fibrillation with rapid ventricular response: Status: Acute (3) Sepsis: Status: Acute (4) Pneumonia: Status: Acute Plan 83-year-old male with past medical history of CVA, dysphagia, dysarthria comes into the hospital after facility found him to have hypoxia, and fever. # sepsis secondary to pneumonia - fever, tachycardic, tachypneic on admission - aspiration versus acquired, has history of dysphagia - continue iv Zosyn to cover for aspiration organisms and IV azithromycin started on 03/13 - blood cultures pending # acute hypoxic respiratory failure due to pneumonia wean oxygen as tolerated. # acute hypernatremia due to decreased by mouth intake /receive 1 dose of IV Lasix in ED, will treat with D5W and follow labs # mild hypokalemia likely due to diuretic will replace and follow labs # AFib with rvr - ventricular rate normalized,on aspirin, metoprolol, # hyperglycemia due to diabetes - stable blood sugars on low-dose sliding scale insulin, Lantus, will hold metformin # acute UTI - continue IV Zosyn day2 , urine culture pending # elevated BNP - clinically appears euvolemic, no baseline bnp for comparison, receive 1 dose of Lasix in ED,follow BNP - monitor respiratory status and volume status # Dysphagia - seen by speech therapy placed on nectar thick liquids and pureed diet (same diet as [facility]) for given patient's need for further management of acute infection patient require continued inpatient hospital stay Time Spent With Patient Time: Total time managing care of this patient today ____ minutes. Quality Stroke Does the patient have a stroke diagnosis?: No VTE Prior VTE?: No VTE Risk Level:: Medical - moderate - high VTE Device Contraindication: Treatment Not Indicated VTE Drug Contraindication: N/A - Med Ordered
[2023-03-14 11:43] LABS: Glucose, Whole Blood 217 mg/dL (60-115)
[2023-03-14] MEDS: Dextrose 5 % 1,000 ML 80 ML IVCONT (11:54)
[2023-03-14] MEDS: Potassium Chloride Packet 20 MEQ PACKET 40 MEQ PO (11:58)
[2023-03-14] MEDS: Insulin Lispro 100 UNIT/ML 3 ML VIAL SUBCUT ×3 (11:58→20:49)
--- NOTE | 2023-03-14 14:58 | MHC.CM.PN ---
Per MD rounds no discharge today. Patient requires IV ABX for UTI and Aspiration PNA. DP return to [facility]TC at [facility] via BLS.
--- NOTE | 2023-03-14 15:47 | MHC.SLORD ---
Speech Language Pathology Order Status: Per RN, patient tolerating current diet recommendation of pureed solids, nectar thick liquids, and meds crushed in puree. Reportedly, this is patient's baseline diet.
[2023-03-14 16:04] LABS: Glucose, Whole Blood 213 mg/dL (60-115)
[2023-03-14 19:51] LABS: Glucose, Whole Blood 241 mg/dL (60-115)
[2023-03-14] MEDS: Azithromycin 500 MG in 0.9 % Sodium Chloride 250 ML 125 MG IV (20:42)
[2023-03-14] MEDS: Insulin Glargine,Hum.rec.anlog 100 UNIT/ML 10 ML VIAL 10 UNIT SUBCUT (20:48)
[2023-03-14] MEDS: hydrOXYzine HCL 10 MG TABLET PO (20:49)
[2023-03-14] MEDS: Famotidine 20 MG TABLET PO (20:50)
[2023-03-14] MEDS: Melatonin 3 MG TABLET PO (20:50)
[2023-03-15] VITALS (7 sets, daily range): BP systolic 127–155; BP diastolic 65–76; PULSE 75–89; RESP 16–18; TEMP 36.3–36.6; O2SAT 91–97
[2023-03-15] MEDS: Piperacillin Sodium/Tazobactam 3.375 GM in 0.9 % Sodium Chloride 50 ML IV ×4 (00:48→18:04)
[2023-03-15] MEDS: Levothyroxine Sodium 50 MCG TABLET PO (05:59)
[2023-03-15 06:33] LABS: Hematocrit 36.4 % (42.0-52.0); Hemoglobin 11.1 g/dl (14.0-18.0); Mean Corpuscular HGB Conc 30.5 g/dl (31.0-36.0); Mean Corpuscular Hemoglobin 28.2 pg (27.0-33.0); Mean Corpuscular Volume 92.4 fL (80.0-98.0); Platelet Count 223 X10*3/uL (160-400); Red Blood Count 3.94 X10*6/uL (4.60-5.80); Red Cell Distribution Width 16.9 % (11.0-16.0); White Blood Count 7.4 X10*3/uL (4.8-10.8)
[2023-03-15 06:51] LABS: Anion Gap 14 (12-20); Blood Urea Nitrogen 27 mg/dL (9-16); Calcium 9.7 mg/dL (8.4-10.2); Carbon Dioxide 28 mmol/L (22-29); Chloride 110 mmol/L (96-108); Creatinine Clr Calc Pharmacy 68.8; Estimated Glomerular Filt Rate > 60; Glucose Random 132 mg/dL (60-115); Potassium 3.4 mmol/L (3.3-5.1); Sodium 149 mmol/L (135-145)
[2023-03-15 06:53] LABS: B Type Natriuretic Peptide 246 pg/mL (<100)
[2023-03-15 07:29] LABS: Glucose, Whole Blood 129 mg/dL (60-115)
[2023-03-15] MEDS: Aspirin 81 MG TAB.CHEW PO (08:15)
[2023-03-15] MEDS: Famotidine 20 MG TABLET PO ×2 (08:15→20:23)
[2023-03-15] MEDS: Sertraline HCL 50 MG TABLET PO (08:15)
[2023-03-15] MEDS: Heparin Sodium,Porcine 5,000 UNIT/ML VIAL 5000 UNIT SUBCUT ×2 (08:15→20:24)
[2023-03-15] MEDS: Metoprolol Tartrate 25 MG TABLET PO ×2 (08:15→20:23)
[2023-03-15] MEDS: Thiamine HCL 100 MG TABLET PO (08:15)
[2023-03-15] MEDS: Cyanocobalamin (Vitamin B-12) 100 MCG TABLET PO (08:15)
[2023-03-15] MEDS: Magnesium Oxide 400 MG TABLET PO (08:15)
[2023-03-15] MEDS: 0.9 % Sodium Chloride Flush 3 ML SYRINGE IVFLUSH (08:16)
[2023-03-15] MEDS: Fluticasone/Vilanterol 100/25 BLST.W.DEV 1 PUFF INHALE (08:59)
[2023-03-15] MEDS: Albuterol/Iprat 2.5/0.5MG 3 ML AMPUL.NEB INHALE ×3 (09:00→19:45)
[2023-03-15 11:16] LABS: Glucose, Whole Blood 296 mg/dL (60-115)
--- NOTE | 2023-03-15 11:20 | HO.PM.IMPN ---
Subjective Subjective Date of Service: 03/15/23 Interval History: seen and examined this morning follow up for aspiration pneumonia awake, alert, appears comfortable able to answer simple questions - denies any abdominal pain, or sob Review of Systems Review of Systems: Yes all other systems are reviewed and are negative Cardiovascular Cardiovascular: Denies chest pain and Denies dyspnea Respiratory Respiratory: Denies dyspnea Gastrointestinal Gastrointestinal: Denies abdominal pain Physical Exam Vital Signs: Vital Signs: Last Vital Signs Temp 97.5 F 03/15/23 07:17 Pulse 75 03/15/23 09:05 Resp 18 03/15/23 09:05 BP 127/65 03/15/23 07:17 Pulse Ox 91 L 03/15/23 07:17 O2 Del Method Room Air 03/15/23 07:17 O2 Flow Rate 2.5 03/14/23 15:00 BMI result Body Mass Index 23.2 Const: General: cooperative, comfortable, no acute distress, alert and awake Nutritional Appearance: average body habitus Resp: Effort & Inspection: normal respiratory effort, able to speak in complete sentences, no respiratory distress and no use of accessory muscles Cardio: Rate: regular rate GI: Inspection: No distended Palpation (GI): Soft to palpation and nontender Neuro: Other: left hemiparesis Extrem: General: Yes no pedal edema Objective Data Active Medications Acetaminophen (Acetaminophen 325 Mg Tablet) 650 mg PO Q6H PRN PRN Reason: Pain, Mild (Pain Scale 1-3) Albuterol/Ipratropium (Albuterol/Iprat 2.5/0.5mg 3 Ml Ampul.Neb) 3 ml INHALE RQ4H PRN PRN Reason: Shortness of Breath/Wheezing Albuterol/Ipratropium (Albuterol/Iprat 2.5/0.5mg 3 Ml Ampul.Neb) 3 ml INHALE RQ4H WHILE AWAKE [facility] Last Admin: 03/15/23 09:00 Dose: 3 ml Documented By: DEANA Aspirin (Aspirin 81 Mg Tab.Chew) 81 mg PO DAILY [facility] Last Admin: 03/15/23 08:15 Dose: 81 mg Documented By: ALBERT Cyanocobalamin (Cyanocobalamin (Vitamin B-12) 100 Mcg Tablet) 100 mcg PO DAILY [facility] Last Admin: 03/15/23 08:15 Dose: 100 mcg Documented By: ALBERT Dextrose (Dextrose 50 % 25 Gm/50 Ml Syringe) 25 gm IVPUSH Q15M PRN; Protocol PRN Reason: per Hypoglycemia Standing Ord. Docusate Sodium (Docusate Sodium 100 Mg Capsule) 100 mg PO DAILY PRN PRN Reason: Constipation Famotidine (Famotidine 20 Mg Tablet) 20 mg PO BID [facility] Last Admin: 03/15/23 08:15 Dose: 20 mg Documented By: ALBERT Fluticasone/Vilanterol (Fluticasone/Vilanterol 100/25 Blst.W.Dev) 1 puff INHALE DAILY [facility] Last Admin: 03/15/23 08:59 Dose: 1 puff Documented By: DEANA Glucose (Glucose Gel 15 Gm Gel..Gram.) 15 gm PO Q15M PRN; Protocol PRN Reason: per Hypoglycemia Standing Ord. Heparin Sodium (Porcine) (Heparin Sodium,Porcine 5,000 Unit/Ml Vial) 5,000 unit SUBCUT Q12H [facility] Last Admin: 03/15/23 08:15 Dose: 5,000 unit Documented By: ALBERT Hydroxyzine HCl (Hydroxyzine Hcl 10 Mg Tablet) 10 mg PO TID PRN PRN Reason: PRURITIS Last Admin: 03/14/23 20:49 Dose: 10 mg Documented By: JULIA Azithromycin 500 mg/ Sodium (Chloride) 250 mls @ 125 mls/hr IV Q24H [facility] Last Infusion: 03/14/23 23:04 Dose: Infused Documented By: JULIA Piperacillin Sod/Tazobactam (Sod 3.375 gm/ Sodium Chloride) 50 mls @ 100 mls/hr IV Q6H [facility] Last Infusion: 03/15/23 06:36 Dose: Infused Documented By: JULIA Dextrose (D5w) 1,000 mls @ 75 mls/hr IVCONT .[id number] [facility] Stop: 03/16/23 00:49 Insulin Glargine (Insulin Glargine,Hum.Rec.Anlog 100 Unit/Ml 10 Ml Vial) 10 unit SUBCUT BEDTIME [facility] Last Admin: 03/14/23 20:48 Dose: 10 unit Documented By: JULIA Insulin Human Lispro (Insulin Lispro 100 Unit/Ml 3 Ml Vial) 0 unit SUBCUT QIDACHS [facility]; Protocol Last Admin: 03/15/23 08:18 Dose: Not Given Documented By: ALBERT Non-Admin Reason: No Insulin Coverage Levothyroxine Sodium (Levothyroxine Sodium 50 Mcg Tablet) 50 mcg PO DAILY@0630 [facility] Last Admin: 03/15/23 05:59 Dose: 50 mcg Documented By: JULIA Magnesium Oxide (Magnesium Oxide 400 Mg Tablet) 400 mg PO DAILY [facility] Last Admin: 03/15/23 08:15 Dose: 400 mg Documented By: ALBERT Melatonin (Melatonin 3 Mg Tablet) 3 mg PO BEDTIME [facility] Last Admin: 03/14/23 20:50 Dose: 3 mg Documented By: JULIA Metoprolol Tartrate (Metoprolol Tartrate 25 Mg Tablet) 25 mg PO BID [facility]; Protocol Last Admin: 03/15/23 08:15 Dose: 25 mg Documented By: ALBERT Non-Formulary Medication (Amantadine Hcl) 100 mg PO DAILY [facility] Ondansetron HCl (Ondansetron Hcl 4 Mg/2 Ml Vial) 4 mg IVPUSH Q8H PRN PRN Reason: Nausea and Vomiting Sertraline HCl (Sertraline Hcl 50 Mg Tablet) 50 mg PO DAILY [facility] Last Admin: 03/15/23 08:15 Dose: 50 mg Documented By: ALBERT Sodium Chloride (0.9 % Sodium Chloride Flush 3 Ml Syringe) 3 ml IVFLUSH QSHIFT [facility] Last Admin: 03/15/23 08:16 Dose: 3 ml Documented By: ALBERT Tamsulosin HCl (Tamsulosin Hcl 0.4 Mg Capsule) 0.4 mg PO BEDTIME [facility] Last Admin: 03/14/23 20:50 Dose: Not Given Documented By: JULIA Non-Admin Reason: unable to crush Thiamine HCl (Thiamine Hcl 100 Mg Tablet) 100 mg PO DAILY [facility] Last Admin: 03/15/23 08:15 Dose: 100 mg Documented By: ALBERT Labs 03/15/23 05:49 03/15/23 05:49 Labs: Laboratory Results - last 24 hr 03/14/23 03/14/23 03/14/23 11:40 15:59 19:47 MCV MCH MCHC RDW Plt Count MPV Absolute Nucleated RBC Nucleated RBC % (auto) Anion Gap Estim Creat Clear Calc Estimated GFR POC Glucose 217 H 213 H 241 H Random Glucose Calcium B-Natriuretic Peptide 03/15/23 03/15/23 03/15/23 05:49 07:21 11:12 MCV 92.4 MCH 28.2 MCHC 30.5 L RDW 16.9 H Plt Count 223 MPV 13.0 H Absolute Nucleated RBC 0.000 Nucleated RBC % (auto) 0.0 Anion Gap 14 Estim Creat Clear Calc 68.8 Estimated GFR > 60 POC Glucose 129 H 296 H Random Glucose 132 H Calcium 9.7 D B-Natriuretic Peptide 246 H Microbiology Microbiology Results: Microbiology 03/12/23 19:08 Blood Culture - Preliminary Blood - Venous No growth after 48 hours. 03/12/23 18:40 Blood Culture - Preliminary Blood - Venous No growth after 48 hours. 03/12/23 Unknown Urine Culture - Final Urine Catheterized - Vo Catheter No growth. Assessment and Plan (1) Pneumonia: Status: Acute Plan 83-year-old male with past medical history of CVA, dysphagia, dysarthria who was sent to the hospital after facility found him to have hypoxia, and fever diagnosed to have pneumonia sepsis secondary to pneumonia fever, tachycardic, tachypneic on admission - resolved probable aspiration, has history of dysphagia - seen by speech rec NDD1 with nectar thick liqs (same as baseline) continue IV Zosyn to cover for aspiration, will d/c azithromycin blood cultures negative acute hypoxic respiratory failure due to pneumonia on room air acute hypernatremia due to decreased by mouth intake improving, sodium down to 149 will give additional liter of D5W and follow labs mild hypokalemia likely due to diuretic improved with replacement AFib with rvr ventricular rate normalized,on aspirin, metoprolol hyperglycemia due to diabetes stable blood sugars on low-dose sliding scale insulin, Lantus, will hold metformin acute UTI, ruled out urine culture negative elevated BNP clinically appears euvolemic, no baseline bnp for comparison, receive 1 dose of Lasix in ED,follow BNP monitor respiratory status and volume status Dysphagia seen by speech therapy placed on nectar thick liquids and pureed diet (same diet as fdc) code status - full code attending - dr. 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 Quality Stroke Does the patient have a stroke diagnosis?: No VTE Prior VTE?: No VTE Risk Level:: Medical - moderate - high VTE Device Contraindication: Treatment Not Indicated VTE Drug Contraindication: N/A - Med Ordered
[2023-03-15] MEDS: Insulin Lispro 100 UNIT/ML 3 ML VIAL SUBCUT ×3 (11:37→20:24)
[2023-03-15] MEDS: Dextrose 5 % 1,000 ML 75 ML IVCONT (11:39)
--- NOTE | 2023-03-15 12:59 | MHC.SL.SWA ---
Speech Pathologist Impression: Risk of Aspiration Due to: Medically Fragile Dysphasia Diet Status: Recommend continue on current diet of Puree (NDD1) with Maxbass Thick liquids, Pills crushed in puree, 1-1 feeding. Liquid Consistency and Strategies for Safe Swallow: Liquid Intake Recommendation: Maxbass Thick Liquid Intake Strategies: Small Sips Solid Food Consistency: Dietary Recommendations: Pureed (NDD1) Additional Modifications to Solid Foods: 1-1 feeding. Add sauces/gravies and blend well. Liquids by individual, controlled cup sips. Oral Medication Intake: Crushed with Puree Please contact the pharmacy regarding appropriate crushable or liquid drug formulations that are available whenever modified delivery is recommended. Compensatory Strategies and Precautions to be Taken for Safe Swallow: Sitting Upright (90 deg) No Straw Liquids from Cup Small Bites and Sips Alternate Liquids/Solids Supervision While Eating and Drinking for Safe Swallow: Total Assistance (1:1) Foods to Avoid: Swallowing Recommended Treatments: Compens. Strategy Educat. Recommendation for Speech: Outpatient Speech Therapy Comment: Patient seen during lunch, with ENGINE TURNER feeding patient. ENGINE TURNER initially reported he's done, however reported she had not given him any liquids. Patient was also noted to be reclined at 70 degrees, MACHINE CELL TUBER advised and then repositioned patient with head of bead at 90 degrees. ENGINE TURNER then gave patient controlled cup sips of nt liquid with patient producing a timely oral phase, mild delay of swallow noted. ENGINE TURNER gave further bites of puree, with patient needing some initial cuing to orient to the spoon, followed by mild delay of oral phase, timely swallow, no clinical signs of aspiration. Patient spoke in Wolof with MACHINE CELL TUBER, however speech was notably characteritically fluent aphasic, evidenced confusion. Recommend continue on current diet of Puree (NDD1) with Maxbass Thick liquids, Pills crushed in puree, 1-1 feeding. Frequency/Duration: Date Range for Service Req: Timeline to reassess: PRN Embalmer Assistant Clinican/Clinical Fellow: No Supervisory Statement: I have reviewed and agree with the student/clinical fellow's documentation: N/A Speech Language Pathologist: Tricia Gutierrez M.A., CCC-MACHINE CELL TUBER
--- NOTE | 2023-03-15 14:29 | MHC.CM.PN ---
PER MD ROUNDS, PT IS EXPECTED TO BE READY TO DC TOMORROW PT IS A LTC RESIDENT OF [facility] UPDATES SENT TO [facility] PT WILL NEED BLS TRANSPORT
[2023-03-15 16:53] LABS: Glucose, Whole Blood 169 mg/dL (60-115)
[2023-03-15 20:00] LABS: Glucose, Whole Blood 225 mg/dL (60-115)
[2023-03-15] MEDS: Melatonin 3 MG TABLET PO (20:23)
[2023-03-15] MEDS: hydrOXYzine HCL 10 MG TABLET PO (20:23)
[2023-03-15] MEDS: Insulin Glargine,Hum.rec.anlog 100 UNIT/ML 10 ML VIAL 10 UNIT SUBCUT (20:25)
[2023-03-16] VITALS (8 sets, daily range): BP systolic 131–152; BP diastolic 60–78; PULSE 77–102; RESP 16–20; TEMP 36–36.8; O2SAT 90–100
[2023-03-16] MEDS: Piperacillin Sodium/Tazobactam 3.375 GM in 0.9 % Sodium Chloride 50 ML IV ×4 (00:13→18:34)
[2023-03-16] MEDS: 0.9 % Sodium Chloride Flush 3 ML SYRINGE IVFLUSH ×4 (00:13→21:08)
[2023-03-16] MEDS: Levothyroxine Sodium 50 MCG TABLET PO (05:58)
[2023-03-16 06:54] LABS: Anion Gap 13 (12-20); Blood Urea Nitrogen 21 mg/dL (9-16); Calcium 9.2 mg/dL (8.4-10.2); Carbon Dioxide 26 mmol/L (22-29); Chloride 108 mmol/L (96-108); Creatinine Clr Calc Pharmacy 72.8; Estimated Glomerular Filt Rate > 60; Glucose Random 174 mg/dL (60-115); Potassium 3.9 mmol/L (3.3-5.1); Sodium 143 mmol/L (135-145)
[2023-03-16 07:30] LABS: Glucose, Whole Blood 151 mg/dL (60-115)
[2023-03-16] MEDS: Insulin Lispro 100 UNIT/ML 3 ML VIAL SUBCUT ×3 (07:51→16:48)
[2023-03-16] MEDS: Metoprolol Tartrate 25 MG TABLET PO ×2 (07:51→21:07)
[2023-03-16] MEDS: Aspirin 81 MG TAB.CHEW PO (07:51)
[2023-03-16] MEDS: Magnesium Oxide 400 MG TABLET PO (07:51)
[2023-03-16] MEDS: Thiamine HCL 100 MG TABLET PO (07:51)
[2023-03-16] MEDS: Cyanocobalamin (Vitamin B-12) 100 MCG TABLET PO (07:52)
[2023-03-16] MEDS: Heparin Sodium,Porcine 5,000 UNIT/ML VIAL 5000 UNIT SUBCUT ×2 (07:52→21:06)
[2023-03-16] MEDS: Sertraline HCL 50 MG TABLET PO (07:52)
[2023-03-16] MEDS: Famotidine 20 MG TABLET PO ×2 (07:52→21:07)
[2023-03-16] MEDS: Albuterol/Iprat 2.5/0.5MG 3 ML AMPUL.NEB INHALE ×2 (09:13→19:20)
[2023-03-16] MEDS: Fluticasone/Vilanterol 100/25 BLST.W.DEV 1 PUFF INHALE (09:20)
[2023-03-16 11:05] LABS: Glucose, Whole Blood 173 mg/dL (60-115)
--- NOTE | 2023-03-16 11:58 | MHC.SL.SWA ---
Speech Pathologist Impression: Risk of aspiration, oropharyngeal dysphagia Risk of Aspiration Due to: Medically Fragile Dysphasia Diet Status: Recommend continue on current diet of Puree (NDD1) with Escobares Thick liquids, Pills crushed in puree, 1-1 feeding. Liquid Consistency and Strategies for Safe Swallow: Liquid Intake Recommendation: Escobares Thick Liquid Intake Strategies: Small Sips No Straws Solid Food Consistency: Dietary Recommendations: Pureed (NDD1) Additional Modifications to Solid Foods: 1-1 feeding. Add sauces/gravies and blend well. Liquids by individual, controlled cup sips. Oral Medication Intake: Crushed with Puree Please contact the pharmacy regarding appropriate crushable or liquid drug formulations that are available whenever modified delivery is recommended. Compensatory Strategies and Precautions to be Taken for Safe Swallow: Sitting Upright (90 deg) No Straw Liquids from Cup Small Bites and Sips Alternate Liquids/Solids Rate of Ingestion Change Oral Check Supervision While Eating and Drinking for Safe Swallow: Total Assistance (1:1) Swallowing Recommended Treatments: Compens. Strategy Educat. Recommendation for Speech: Outpatient Speech Therapy Comment: Recommend Puree Solids (NDD1) and Escobares-Thick Liquids. Medications Crushed in Puree. Pt will require tray setup assistance and close supervision. Frequency/Duration: Date Range for Service Req: Timeline to reassess: PRN Subwarehouse Supervisor Clinican/Clinical Fellow: No Supervisory Statement: I have reviewed and agree with the student/clinical fellow's documentation: N/A Speech Language Pathologist: Cassia Rivas M.A., CCC-MILL HAND
--- NOTE | 2023-03-16 14:30 | HO.PM.IMPN ---
Subjective Subjective Date of Service: 03/16/23 Interval History: seen and examined this morning follow up for pneumonia no overnight events awake, alert, able to answer some simple questions in lithuanian. ROS limited Review of Systems Review of Systems: Yes all other systems are reviewed and are negative Constitutional Constitutional: Denies chills and Denies fever(s) Physical Exam Vital Signs: Vital Signs: Last Vital Signs Temp 97.3 F 03/16/23 07:07 Pulse 77 03/16/23 09:15 Resp 16 03/16/23 09:15 BP 131/60 03/16/23 07:07 Pulse Ox 90 L 03/16/23 12:05 O2 Del Method Room Air 03/16/23 12:05 O2 Flow Rate 2 03/16/23 07:07 BMI result Body Mass Index 23.2 Const: General: cooperative, comfortable, no acute distress, alert and awake Nutritional Appearance: average body habitus Resp: Effort & Inspection: normal respiratory effort, able to speak in complete sentences, no respiratory distress and no use of accessory muscles Cardio: Rate: regular rate GI: Inspection: No distended Palpation (GI): Soft to palpation and nontender Neuro: Other: left hemiparesis Extrem: General: Yes no pedal edema Objective Data Active Medications Acetaminophen (Acetaminophen 325 Mg Tablet) 650 mg PO Q6H PRN PRN Reason: Pain, Mild (Pain Scale 1-3) Albuterol/Ipratropium (Albuterol/Iprat 2.5/0.5mg 3 Ml Ampul.Neb) 3 ml INHALE RQ4H PRN PRN Reason: Shortness of Breath/Wheezing Albuterol/Ipratropium (Albuterol/Iprat 2.5/0.5mg 3 Ml Ampul.Neb) 3 ml INHALE RQ4H WHILE AWAKE [facility] Last Admin: 03/16/23 12:56 Dose: Not Given Documented By: DEANA Non-Admin Reason: Patient Refused Aspirin (Aspirin 81 Mg Tab.Chew) 81 mg PO DAILY [facility] Last Admin: 03/16/23 07:51 Dose: 81 mg Documented By: KASHIF Cyanocobalamin (Cyanocobalamin (Vitamin B-12) 100 Mcg Tablet) 100 mcg PO DAILY [facility] Last Admin: 03/16/23 07:52 Dose: 100 mcg Documented By: KASHIF Dextrose (Dextrose 50 % 25 Gm/50 Ml Syringe) 25 gm IVPUSH Q15M PRN; Protocol PRN Reason: per Hypoglycemia Standing Ord. Docusate Sodium (Docusate Sodium 100 Mg Capsule) 100 mg PO DAILY PRN PRN Reason: Constipation Famotidine (Famotidine 20 Mg Tablet) 20 mg PO BID [facility] Last Admin: 03/16/23 07:52 Dose: 20 mg Documented By: KASHIF Fluticasone/Vilanterol (Fluticasone/Vilanterol 100/25 Blst.W.Dev) 1 puff INHALE DAILY [facility] Last Admin: 03/16/23 09:20 Dose: 1 puff Documented By: DEANA Glucose (Glucose Gel 15 Gm Gel..Gram.) 15 gm PO Q15M PRN; Protocol PRN Reason: per Hypoglycemia Standing Ord. Heparin Sodium (Porcine) (Heparin Sodium,Porcine 5,000 Unit/Ml Vial) 5,000 unit SUBCUT Q12H [facility] Last Admin: 03/16/23 07:52 Dose: 5,000 unit Documented By: KASHIF Hydroxyzine HCl (Hydroxyzine Hcl 10 Mg Tablet) 10 mg PO TID PRN PRN Reason: PRURITIS Last Admin: 03/15/23 20:23 Dose: 10 mg Documented By: MARIETTA Piperacillin Sod/Tazobactam (Sod 3.375 gm/ Sodium Chloride) 50 mls @ 100 mls/hr IV Q6H [facility] Last Infusion: 03/16/23 13:53 Dose: Infused Documented By: KASHIF Insulin Glargine (Insulin Glargine,Hum.Rec.Anlog 100 Unit/Ml 10 Ml Vial) 10 unit SUBCUT BEDTIME [facility] Last Admin: 03/15/23 20:25 Dose: 10 unit Documented By: MARIETTA Insulin Human Lispro (Insulin Lispro 100 Unit/Ml 3 Ml Vial) 0 unit SUBCUT QIDACHS [facility]; Protocol Last Admin: 03/16/23 11:28 Dose: 2 unit Documented By: KASHIF Levothyroxine Sodium (Levothyroxine Sodium 50 Mcg Tablet) 50 mcg PO DAILY@0630 [facility] Last Admin: 03/16/23 05:58 Dose: 50 mcg Documented By: MARIETTA Magnesium Oxide (Magnesium Oxide 400 Mg Tablet) 400 mg PO DAILY [facility] Last Admin: 03/16/23 07:51 Dose: 400 mg Documented By: KASHIF Melatonin (Melatonin 3 Mg Tablet) 3 mg PO BEDTIME [facility] Last Admin: 03/15/23 20:23 Dose: 3 mg Documented By: MARIETTA Metoprolol Tartrate (Metoprolol Tartrate 25 Mg Tablet) 25 mg PO BID [facility]; Protocol Last Admin: 03/16/23 07:51 Dose: 25 mg Documented By: KASHIF Non-Formulary Medication (Amantadine Hcl) 100 mg PO DAILY [facility] Ondansetron HCl (Ondansetron Hcl 4 Mg/2 Ml Vial) 4 mg IVPUSH Q8H PRN PRN Reason: Nausea and Vomiting Sertraline HCl (Sertraline Hcl 50 Mg Tablet) 50 mg PO DAILY [facility] Last Admin: 03/16/23 07:52 Dose: 50 mg Documented By: KASHIF Sodium Chloride (0.9 % Sodium Chloride Flush 3 Ml Syringe) 3 ml IVFLUSH QSHIFT [facility] Last Admin: 03/16/23 07:51 Dose: 3 ml Documented By: KASHIF Tamsulosin HCl (Tamsulosin Hcl 0.4 Mg Capsule) 0.4 mg PO BEDTIME [facility] Last Admin: 03/15/23 20:26 Dose: Not Given Documented By: MARIETTA Non-Admin Reason: cannot crush med Thiamine HCl (Thiamine Hcl 100 Mg Tablet) 100 mg PO DAILY [facility] Last Admin: 03/16/23 07:51 Dose: 100 mg Documented By: KASHIF Labs 03/15/23 05:49 03/16/23 06:34 Labs: Laboratory Results - last 24 hr 03/15/23 03/15/23 03/16/23 16:50 19:57 06:34 Anion Gap 13 Estim Creat Clear Calc 72.8 Estimated GFR > 60 POC Glucose 169 H 225 H Random Glucose 174 H Calcium 9.2 03/16/23 03/16/23 07:12 11:00 Anion Gap Estim Creat Clear Calc Estimated GFR POC Glucose 151 H 173 H Random Glucose Calcium Assessment and Plan (1) Pneumonia: Status: Acute Plan 83-year-old male with past medical history of CVA, dysphagia, dysarthria who was sent to the hospital after facility found him to have hypoxia, and fever diagnosed to have pneumonia sepsis secondary to pneumonia fever, tachycardic, tachypneic on admission - resolved probable aspiration, has history of dysphagia - seen by speech rec NDD1 with nectar thick liqs (same as baseline) continue IV Zosyn to cover for aspiration, will d/c azithromycin blood cultures negative acute hypoxic respiratory failure due to pneumonia acute hypernatremia due to decreased by mouth intake improving, sodium down to 149 will give additional liter of D5W and follow labs mild hypokalemia likely due to diuretic improved with replacement AFib with rvr ventricular rate normalized,on aspirin, metoprolol hyperglycemia due to diabetes stable blood sugars on low-dose sliding scale insulin, Lantus, will hold metformin acute UTI, ruled out urine culture negative elevated BNP clinically appears euvolemic, no baseline bnp for comparison, receive 1 dose of Lasix in ED,follow BNP monitor respiratory status and volume status Dysphagia seen by speech therapy placed on nectar thick liquids and pureed diet (same diet as [facility]) code status - full code attending - dr. gutierrez dvt ppx - heparin dispo - [facility] care resident at [facility], plan to return when medically stable given patient's need for further management of acute infection patient require continued inpatient hospital stay Time Spent With Patient Time: Total time managing care of this patient today ____ minutes. Quality Stroke Does the patient have a stroke diagnosis?: No VTE Prior VTE?: No VTE Risk Level:: Medical - moderate - high VTE Device Contraindication: Treatment Not Indicated VTE Drug Contraindication: N/A - Med Ordered
[2023-03-16 16:22] LABS: Glucose, Whole Blood 231 mg/dL (60-115)
[2023-03-16] MEDS: Melatonin 3 MG TABLET PO (21:07)
[2023-03-16] MEDS: Tamsulosin HCL 0.4 MG CAPSULE PO (21:07)
[2023-03-16] MEDS: Insulin Glargine,Hum.rec.anlog 100 UNIT/ML 10 ML VIAL 10 UNIT SUBCUT (21:07)
[2023-03-16 21:26] LABS: Glucose, Whole Blood 147 mg/dL (60-115)
[2023-03-17] VITALS (8 sets, daily range): BP systolic 118–152; BP diastolic 59–69; PULSE 63–90; RESP 16–20; TEMP 36–36.6; O2SAT 93–99
[2023-03-17] MEDS: Piperacillin Sodium/Tazobactam 3.375 GM in 0.9 % Sodium Chloride 50 ML IV ×2 (00:53→06:29)
[2023-03-17] MEDS: Levothyroxine Sodium 50 MCG TABLET PO (06:26)
[2023-03-17 07:27] LABS: Glucose, Whole Blood 172 mg/dL (60-115)
[2023-03-17 07:57] LABS: Glucose, Whole Blood 192 mg/dL (60-115)
[2023-03-17] MEDS: Heparin Sodium,Porcine 5,000 UNIT/ML VIAL 5000 UNIT SUBCUT (08:23)
[2023-03-17] MEDS: Famotidine 20 MG TABLET PO (08:23)
[2023-03-17] MEDS: Thiamine HCL 100 MG TABLET PO (08:23)
[2023-03-17] MEDS: Insulin Lispro 100 UNIT/ML 3 ML VIAL SUBCUT ×2 (08:23→12:06)
[2023-03-17] MEDS: Metoprolol Tartrate 25 MG TABLET PO (08:23)
[2023-03-17] MEDS: Magnesium Oxide 400 MG TABLET PO (08:24)
[2023-03-17] MEDS: Cyanocobalamin (Vitamin B-12) 100 MCG TABLET PO (08:24)
[2023-03-17] MEDS: Sertraline HCL 50 MG TABLET PO (08:24)
[2023-03-17] MEDS: Aspirin 81 MG TAB.CHEW PO (08:24)
[2023-03-17] MEDS: 0.9 % Sodium Chloride Flush 3 ML SYRINGE IVFLUSH (08:24)
[2023-03-17] MEDS: Albuterol/Iprat 2.5/0.5MG 3 ML AMPUL.NEB INHALE ×3 (08:54→15:53)
[2023-03-17 11:23] LABS: Glucose, Whole Blood 218 mg/dL (60-115)
--- NOTE | 2023-03-17 11:28 | PM.DS ---
DS: Providers Provider Date of Service: 03/17/23 Date of admission: 03/13/23 00:06 Primary care physician: DARREL NEVAREZ DS: Diagnosis Discharge Diagnosis (1) Pneumonia: Status: Acute DS: Summary Hospital Course Hospital Course: HP as per admitting provider patient is a resident of [facility], poor historian at baseline, with history of CVA, hypertension, dysarthria, dysphagia, paroxysmal AFib, BPH, COPD, diabetes, who was sent from [facility] for evaluation of shortness of breath, hypoxic as well as febrile. History is obtained from chart and ED physician. It appears that patient had a fever of 103 at the facility, he was also found to have an O2 in the 80s, was placed on 2 L of oxygen with oxygen improving to 89%. Therefore patient was brought into the hospital. Unable to obtain complete review of system due to patient's dementia and baseline dysarthria On arrival to the ED patient found to have a fever of 102.3, heart rate of 122, respiratory rate of 27, satting 94% on OxyMask Labs are significant for WBC count of tell 0.6, hemoglobin of 12.2, glucose of 500, BNP of 460 no previous for comparison, and UA positive for leukocyte Estrace, WBC, bacteria Chest x-ray showed diffuse right lung infiltrate consistent with pneumonia RSV influenza a and COVID-19 negative patient will be admitted for further management 83-year-old man treated for sepsis secondary to aspiration pneumonia. Treated with IV Zosyn, seen by speech therapy with recommendation for nectar thick liquids and pureed diet. Blood cultures remain negative. Patient will be discharged with 2 more days of azithromycin. Patient also had an episode multiple electrolyte abnormalities including hypernatremia and hypokalemia both resolved with replacement and treatment of IV fluids. Patient did develop atrial fibrillation with rapid ventricular response but soon normalized. He is to continue his aspirin and metoprolol. Diabetes mellitus with hyperglycemia. Continue home medications Time Spent with Patient Time attestation: Total time managing care of this patient today ____ minutes. Discharge coordination time: Greater than 30 minutes Quality: Safe Use of Opioids Does Pt have an Active Cancer Diagnosis on the Problem List?: No Quality: Stroke Does the patient have a stroke diagnosis?: No Physical Exam Vital Signs: Vital Signs: Last Vital Signs Temp 97.2 F 03/17/23 07:29 Pulse 88 03/17/23 08:54 Resp 20 03/17/23 08:54 BP 125/59 L 03/17/23 07:29 Pulse Ox 94 03/17/23 07:29 O2 Del Method Nasal Cannula 03/17/23 07:29 O2 Flow Rate 1 03/17/23 07:29 BMI result Body Mass Index 23.2 Appearing in no acute distress lung sounds are clear to auscultation heart regular rate rhythm, clear S1, S2 positive bowel sounds, abdomen is soft, nontender neuro patient is alert , confused at baseline DS: Data Data Completed and Pending Labs on day of discharge: Laboratory Results - last 24 hr 03/16/23 03/16/23 03/17/23 16:06 21:07 07:21 POC Glucose 231 H 147 H 172 H 03/17/23 03/17/23 07:53 11:19 POC Glucose 192 H 218 H Preliminary micro results at discharge 03/12/23 19:08 Blood Culture - Preliminary Blood - Venous No growth after 48 hours. 03/12/23 18:40 Blood Culture - Preliminary Blood - Venous No growth after 48 hours. Discharge Plan Discharge Anticipated Discharge Date/Time: 03/17/23 11:23 Patient Disposition: Xfer [facility] Discharge Diagnosis: Sepsis Community-acquired pneumonia Acute hypoxic respiratory failure Acute hypernatremia Hypokalemia 9 atrial fibrillation with rapid ventricular response Diabetes mellitus type 2 with hyperglycemia Referrals: DARREL NEVAREZ [Primary Care Provider] - 1 Week Discharge Medications: New azithromycin 500 mg tablet 500 mg PO DAILY 2 Days Qty: 2 0RF Rx Instructions: start on day 2 of therapy Continued amantadine HCl 50 mg/5 mL solution 100 mg PO DAILY cyanocobalamin (vitamin B-12) 100 mcg Tablet 100 mcg PO DAILY thiamine HCl (vitamin B1) 100 mg Tablet 100 mg PO DAILY melatonin 3 mg Tablet 3 mg PO BEDTIME famotidine 20 mg Tablet 20 mg PO BID tamsulosin 0.4 mg capsule 0.4 mg PO BEDTIME levothyroxine 50 mcg tablet 50 mcg PO DAILY metformin 1,000 mg tablet 1,000 mg PO BID aspirin 81 mg Tablet,Chewable 81 mg PO DAILY hydroxyzine HCl 10 mg Tablet 10 mg PO TID PRN (Reason: PRURITIS) sertraline 50 mg tablet 50 mg PO DAILY insulin lispro 100 unit/mL insulin pen 0 sliding scale dose subcut TIDAC Protocol: Insulin Correction Scale Less than or equal to 110 ---- Give (units): 0 111 to 150 Give (units): 0 151 to 200 Give (units): 0 201 to 250 Give (units): 2 251 to 300 Give (units): 4 301 to 350 Give (units): 6 Greater than 350 Give (units): 8 Call MD if Blood Glucose > : 400 metoprolol tartrate 25 mg tablet 25 mg PO BID fluticasone propion-salmeterol [Advair HFA] 115-21 mcg/actuation Hfa Aerosol Inhaler 2 puff INHALATION BID insulin glargine 100 unit/mL (3 mL) Insulin Pen 10 unit SUBCUT QPM magnesium oxide 400 mg magnesium Tablet 400 mg PO DAILY Discharge Orders: Discharge Order (Routine); Ordered 03/17/23 Ordered By: Linda Arrieta Diet: Advance to usual diet Activity on Discharge: As tolerated Stand Alone Forms: Patient Portal Discharge page Care Plan Goals: complete resolution of symptoms Health Concerns: Sepsis Community-acquired pneumonia Acute hypoxic respiratory failure Acute hypernatremia Hypokalemia 9 atrial fibrillation with rapid ventricular response Diabetes mellitus type 2 with hyperglycemia Plan of Treatment: Follow-up with primary care provider as needed Take all medications as prescribed Assessment: see discharge summary
--- NOTE | 2023-03-17 13:50 | MHC.CM.PN ---
PT CLEARED TO RETURN TO [facility] TODAY CM CALLED PTS GUARDIAN, RENAE JONAS [phone] SHE IS AWARE OF DC TIME/PLAN AND IN AGREEMENT BLS TRANSPORT ARRANGED FOR 1600 HOURS
== END 2023-03-17 17:20 | DRG 871 ==
LOC: HO.ED 19:07 → HO.EDOVER 03-13 00:14 → HO.S3 03-13 17:40
PROVIDERS: Hospitalist; Physician Assistant Medical; Admitting Provider Internal Medicine; Emergency Provider Internal Medicine; PCP Emergency Medicine; Visit Provider Nurse Practitioner Acute Care
DX: A41.9 Sepsis, unspecified organism (principal); J69.0 Pneumonitis due to inhalation of food and vomit; J96.01 Acute respiratory failure with hypoxia; E87.0 Hyperosmolality and hypernatremia; I69.354 Hemiplegia and hemiparesis following cerebral infarction affecting left non-dominant side; I48.91 Unspecified atrial fibrillation; R13.10 Dysphagia, unspecified; E11.65 Type 2 diabetes mellitus with hyperglycemia; E87.6 Hypokalemia; F03.90 Unspecified dementia, unspecified severity, without behavioral disturbance, psychotic disturbance, mood disturbance, and anxiety; N40.0 Benign prostatic hyperplasia without lower urinary tract symptoms; Z20.822 Contact with and (suspected) exposure to COVID-19; I69.320 Aphasia following cerebral infarction; Z91.040 Latex allergy status; J44.9 Chronic obstructive pulmonary disease, unspecified; Z87.891 Personal history of nicotine dependence; Z79.4 Long term (current) use of insulin; Z79.51 Long term (current) use of inhaled steroids; Z79.82 Long term (current) use of aspirin; Z79.84 Long term (current) use of oral hypoglycemic drugs; Z79.899 Other long term (current) drug therapy
CPT/HCPCS: 0241U; 36415; 71045; 80048; 80053; 81001; 82803; 82947; 83605; 83735; 83880; 84484; 85007; 85025; 85027; 85610; 85730; 87040; 87086; 92526; 92610; 93005; 93306; 94640; 99285; C1758; J0456; J0696; J1643; J1940; J2543; Q9957

== ENCOUNTER 2023-03-13 00:06 | Outpatient (BNV) | payer OTHER, SELFPAY | END 2023-03-13 07:00 | PROVIDERS: Admitting Provider Internal Medicine; Emergency Provider Internal Medicine; Visit Provider Internal Medicine Cardiovascular Disease | DX: I34.0 Nonrheumatic mitral (valve) insufficiency (principal); I35.1 Nonrheumatic aortic (valve) insufficiency | CPT/HCPCS: 93306 ==

== ENCOUNTER → 2023-03-13 00:06 | Outpatient (BNV) | payer OTHER, SELFPAY | PROVIDERS: Admitting Provider Internal Medicine; Emergency Provider Internal Medicine; Visit Provider Internal Medicine | DX: J18.9 Pneumonia, unspecified organism (principal) | CPT/HCPCS: 99223; 99232; 99233; 99239; 99499 ==

== ENCOUNTER 2023-08-21 17:56 | Emergency (ER) | payer MEDICARE, MEDICAID, SELFPAY ==
[2023-08-21 18:28] VITALS: BP 142/82; BP 178/92; PULSE 68; PULSE 70; RESP 16; TEMP 37.2; O2SAT 93; O2SAT 97; BMI 24.3
--- NOTE | 2023-08-21 19:02 | ED.NAVMDI ---
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 Patient is aphasic and is unable to give a history. Related Data Home Medications Medication Instructions Recorded Confirmed amantadine HCl 50 mg/5 mL oral 100 mg PO DAILY 03/12/23 03/12/23 solution aspirin 81 mg chewable tablet 81 mg PO DAILY 03/12/23 03/12/23 cyanocobalamin (vitamin B-12) 100 100 mcg PO DAILY 03/12/23 03/12/23 mcg tablet famotidine 20 mg tablet 20 mg PO BID 03/12/23 03/12/23 fluticasone propionate 115 2 puff inhalation BID 03/12/23 03/12/23 mcg-salmeterol 21 mcg/actuation HFA inhaler (Advair HFA) hydroxyzine HCl 10 mg tablet 10 mg PO TID PRN PRURITIS 03/12/23 03/12/23 insulin glargine 100 unit/mL (3 10 unit subcut QPM 03/12/23 03/12/23 mL) subcutaneous pen insulin lispro 100 unit/mL 0 sliding scale dose subcut TIDAC 03/12/23 03/12/23 subcutaneous pen levothyroxine 50 mcg tablet 50 mcg PO DAILY 03/12/23 03/12/23 magnesium oxide 400 mg PO DAILY 03/12/23 03/12/23 melatonin 3 mg tablet 3 mg PO BEDTIME 03/12/23 03/12/23 metformin 1,000 mg tablet 1,000 mg PO BID 03/12/23 03/12/23 metoprolol tartrate 25 mg tablet 25 mg PO BID 03/12/23 03/12/23 sertraline 50 mg tablet 50 mg PO DAILY 03/12/23 03/12/23 tamsulosin 0.4 mg capsule 0.4 mg PO BEDTIME 03/12/23 03/12/23 thiamine HCl (vitamin B1) 100 mg 100 mg PO DAILY 03/12/23 03/12/23 tablet Previous Rx's Medication Instructions Recorded azithromycin 500 mg tablet 500 mg PO DAILY 2 days #2 tabs 03/17/23 ondansetron 4 mg disintegrating 4 mg PO Q6-8H PRN nausea and 08/21/23 tablet vomiting #14 tabs Allergies Allergy/AdvReac Type Severity Reaction Status Date / Time latex Allergy Unknown Unknown Verified 03/12/23 18:15 atorvastatin [From Lipitor] AdvReac Unknown Unknown Verified 03/12/23 18:15 Review of Systems Review of Systems: Yes all other systems are reviewed and are negative [facility] Past Medical History Medical History Type 2 diabetes mellitus Hypertension Aphasia COPD (chronic obstructive pulmonary disease) Paroxysmal A-fib Chronic ischemic right MCA stroke Social History Social History Household Members: Other Household Members Other:: pt comes from [facility] Housing: Residential Do you presently have visiting nurse or other home services: No (skilled nursing) Unable to assess alcohol history related to: Unable to respond Alcohol intake: never Patient Tobacco Use Status: Former Tobacco user Use of substances other than those prescribed or required for medical reasons: Unable to respond Advance Directives: Yes Advance Directives on File: Yes Advance Directives Date on File: 03/13/23 service: No Physical Exam Vital Signs: Vital Signs: Last Vital Signs Temp 97.6 F 08/21/23 20:10 Pulse 98 08/21/23 22:00 Resp 20 08/21/23 22:00 BP 150/75 H 08/21/23 22:00 Pulse Ox 93 08/21/23 22:00 O2 Del Method Room Air 08/21/23 22:00 BMI result Body Mass Index 24.3 Vital signs did reveal an elevated blood pressure of 178/92 otherwise unremarkable Exam General: Patient is awake and alert, he does have nausea and did vomit while I was examining him.ss Head: Normocephalic, atraumatic EENT: PERRL, Lids normal, sclera normal, conjunctiva normal, nose normal , ears normal, throat without erythema or exudates Neck: Supple, no adenopathy Lung: breath sounds symmetric, no wheezing, rales or rhonchi Chest: symmetric movement, nontender Heart: regular rate and rhythm, normal S1, S2 no murmurs or rubs Abdomen: soft, moderate epigastric tenderness, nondistended, normal bowel sounds Extremities: Left upper extremity contracted secondary to stroke, does not move left lower extremity but moves right side without difficulty Neuro: Awake, alert, left-sided weakness secondary to old stroke Medications Administered Discontinued Medications Generic Name Dose Route Start Last Admin Trade Name Reyes PRN Reason Stop Dose Admin Diphenhydramine HCl 25 mg 08/21/23 20:13 08/21/23 20:21 Diphenhydramine Hcl 50 Mg/Ml Vial IVPUSH 08/21/23 20:14 25 mg ONCE ONE Administration Sodium Chloride 1,000 mls @ 999 mls/hr 08/21/23 19:13 08/21/23 21:34 Ns IV 08/21/23 20:13 Infused .Q1H1M STA Infusion Metoclopramide HCl 10 mg 08/21/23 20:13 08/21/23 20:21 Metoclopramide Hcl 10 Mg/2 Ml Vial IVPUSH 08/21/23 20:14 10 mg ONCE STA Administration Ondansetron HCl 4 mg 08/21/23 19:13 08/21/23 19:50 Ondansetron Hcl 4 Mg/2 Ml Vial IVPUSH 08/21/23 19:14 4 mg ONCE ONE Administration Medical Decision Making Medical Decision Making MDM Narrative: 83-year-old male with history COPD, diabetes mellitus, hypertension, aphasia, COPD, paroxysmal atrial fibrillation, chronic ischemia with right MCA stroke with aphasia and left-sided weakness, dysphagia who was sent to the emergency department from [facility] for nausea and vomiting. Patient is aphasic and is unable to give a history. Vital signs revealed an elevated blood pressure of 179/92 otherwise unremarkable. Patient was actively vomiting at the time my exam. He did have epigastric tenderness and left-sided weakness which is old. Differential diagnosis: ?Includes but is not limited to gastritis, viral syndrome, COVID-19, influenza, RSV, electrolyte abnormality, anemia Following evaluation was ordered: CBC, CMP, lipase, PTT, troponin, COVID-19, influenza, RSV, EKG Patient was initially treated with the following: IV insert, normal saline x1 L, Zofran 4 mg IV Course: 23:06 Patient required a dose of Reglan 10 mg IV and Benadryl 25 mg IV for persistent nausea and vomiting. Since receiving this medications his symptoms have improved My interpretation patient's laboratory evaluation as follows: Low platelet count 231826. Elevated BUN of 23 with a normal creatinine 0.76. Elevated glucose 204. Lipase and LFTs were normal. Patient's COVID-19, influenza and RSV tests were negative. High sensitive troponin I was detectable but not elevated at 4.0. Patient's symptoms are consistent with a viral infection. Patient will be discharged back to his facility with a prescription for Zofran 4 mg ODT every 6 hours as needed for nausea and vomiting Admission/Observation Consideration of admission/observation: Escalation of care including admission/observation considered Lab Data MDM Lab Attestation statement: I reviewed the patient's lab results. 08/21/23 19:47 08/21/23 20:24 Labs: Lab Results 08/21/23 08/21/23 08/21/23 Range/Units 19:42 19:46 19:47 WBC 9.0 (4.8-10.8) X10*3/uL RBC 4.62 (4.60-5.80) X10*6/uL Hgb 14.0 D (14.0-18.0) g/dl Hct 43.7 D (42.0-52.0) % MCV 94.6 (80.0-98.0) fL MCH 30.3 (27.0-33.0) pg MCHC 32.0 (31.0-36.0) g/dl RDW 14.0 (11.0-16.0) % Plt Count 136 L D (160-400) X10*3/uL MPV 13.3 H (9.4-12.4) fL Immature Gran % (Auto) Cancelled Neut % (Auto) Cancelled Lymph % (Auto) Cancelled [place] % (Auto) Cancelled Eos % (Auto) Cancelled Baso % (Auto) Cancelled Lymph # (Auto) Cancelled [place] # (Auto) Cancelled Eos # (Auto) Cancelled Baso # (Auto) Cancelled Abs Immat Gran (auto) Cancelled Absolute Neuts (auto) Cancelled Absolute Nucleated RBC 0.000 (0.0-0.012) X10*3/uL Nucleated RBC % (auto) 0.0 (0.0-0.2) /100WBC Neutrophils % (Manual) 89 H (45-73) % Band Neutrophils % 2 L (3-5) % Lymphocytes % (Manual) 7 L (20-40) % Monocytes % (Manual) 2 (2-11) % Abs Neuts (Manual) 8.2 (2.0-8.3) X10*3/uL Lymphocytes # (Manual) 0.6 L (1.2-4.9) X10*3/uL Monocytes # (Manual) 0.2 (0.1-1.2) X10*3/uL Platelet Estimate DECREASED (NORMAL) Plt Morphology Comment NORMAL RBC Morphology NOTED Ovalocytes 1+ (5-14) /OIF Smear Tech's Comments MANUAL DIFF APTT 31.1 (26.0-36.8) SEC Sodium (135-145) mmol/L Potassium (3.3-5.1) mmol/L Chloride (96-108) mmol/L Carbon Dioxide (22-29) mmol/L Anion Gap (12-20) BUN (9-16) mg/dL Creatinine (0.5-1.4) mg/dL Estim Creat Clear Calc Estimated GFR Random Glucose (60-115) mg/dL Calcium (8.4-10.2) mg/dL Total Bilirubin (0.0-1.0) mg/dL AST (5-37) U/L ALT (0-40) U/L Alkaline Phosphatase (39-117) U/L Troponin I High Sens 4.0 D (<3.5-35.0) ng/L Total Protein (6.5-8.0) g/dL Albumin (3.5-5.0) g/dL Lipase (8-78) U/L Influenza Type A (PCR) NEGATIVE (Negative) Influenza Type B (PCR) NEGATIVE (Negative) RSV RNA Qual (PCR) NEGATIVE (Negative) SARS-CoV-2 RNA (RT-PCR) NEGATIVE (Negative) 08/21/23 Range/Units 20:24 WBC (4.8-10.8) X10*3/uL RBC (4.60-5.80) X10*6/uL Hgb (14.0-18.0) g/dl Hct (42.0-52.0) % MCV (80.0-98.0) fL MCH (27.0-33.0) pg MCHC (31.0-36.0) g/dl RDW (11.0-16.0) % Plt Count (160-400) X10*3/uL MPV (9.4-12.4) fL Immature Gran % (Auto) Neut % (Auto) Lymph % (Auto) [place] % (Auto) Eos % (Auto) Baso % (Auto) Lymph # (Auto) [place] # (Auto) Eos # (Auto) Baso # (Auto) Abs Immat Gran (auto) Absolute Neuts (auto) Absolute Nucleated RBC (0.0-0.012) X10*3/uL Nucleated RBC % (auto) (0.0-0.2) /100WBC Neutrophils % (Manual) (45-73) % Band Neutrophils % (3-5) % Lymphocytes % (Manual) (20-40) % Monocytes % (Manual) (2-11) % Abs Neuts (Manual) (2.0-8.3) X10*3/uL Lymphocytes # (Manual) (1.2-4.9) X10*3/uL Monocytes # (Manual) (0.1-1.2) X10*3/uL Platelet Estimate (NORMAL) Plt Morphology Comment RBC Morphology Ovalocytes /OIF Smear Tech's Comments APTT (26.0-36.8) SEC Sodium 141 (135-145) mmol/L Potassium 4.4 (3.3-5.1) mmol/L Chloride 108 (96-108) mmol/L Carbon Dioxide 26 (22-29) mmol/L Anion Gap 11 L (12-20) BUN 23 H (9-16) mg/dL Creatinine 0.76 (0.5-1.4) mg/dL Estim Creat Clear Calc 70.0 Estimated GFR > 60 Random Glucose 204 H (60-115) mg/dL Calcium 9.0 (8.4-10.2) mg/dL Total Bilirubin 0.3 (0.0-1.0) mg/dL AST 16 (5-37) U/L ALT 11 (0-40) U/L Alkaline Phosphatase 92 (39-117) U/L Troponin I High Sens (<3.5-35.0) ng/L Total Protein 7.0 (6.5-8.0) g/dL Albumin 3.7 (3.5-5.0) g/dL Lipase 13 (8-78) U/L Influenza Type A (PCR) (Negative) Influenza Type B (PCR) (Negative) RSV RNA Qual (PCR) (Negative) SARS-CoV-2 RNA (RT-PCR) (Negative) Independent Interpretation I performed an independent interpretation of an: EKG Interpretation: My interpretation patient's 12 EKG done at 20:00 hours is as follows: Atrial fibrillation with a ventricular rate of 84, prolonged QRS of 106 milliseconds, normal QTC, no ST segment elevation, nonspecific T-wave abnormalities however the baseline is erratic. Prescription Management I considered prescription management with: Other (Antiemetics) Chronic Conditions Patient?s care impacted by: Other (Dementia) Discharge Plan Discharge Clinical Impression: Viral syndrome, Nausea & vomiting, Acute dehydration Patient Disposition: Home, Self-Care Instructions: Viral Syndrome (ED) Additional Instructions: Your blood work was unremarkable except for slightly low platelet count of a [id number] Your 12 EKG was consistent with atrial fibrillation with a ventricular rate of 84. Your symptoms are consistent with a viral infection. Take Zofran ODT 4 mg pills, 1 pill dissolved in your mouth every 8 hours as needed for nausea and vomiting. Follow-up with your doctor in 2 days. Please return to the emergency department if your symptoms get worse or if you develop any symptoms that are concerning to you. Prescriptions: New ondansetron 4 mg tablet,disintegrating 4 mg PO Q6-8H PRN (Reason: nausea and vomiting) Qty: 14 0RF No Action amantadine HCl 50 mg/5 mL solution 100 mg PO DAILY cyanocobalamin (vitamin B-12) 100 mcg Tablet 100 mcg PO DAILY thiamine HCl (vitamin B1) 100 mg Tablet 100 mg PO DAILY melatonin 3 mg Tablet 3 mg PO BEDTIME famotidine 20 mg Tablet 20 mg PO BID tamsulosin 0.4 mg capsule 0.4 mg PO BEDTIME levothyroxine 50 mcg tablet 50 mcg PO DAILY metformin 1,000 mg tablet 1,000 mg PO BID aspirin 81 mg Tablet,Chewable 81 mg PO DAILY hydroxyzine HCl 10 mg Tablet 10 mg PO TID PRN (Reason: PRURITIS) sertraline 50 mg tablet 50 mg PO DAILY insulin lispro 100 unit/mL insulin pen 0 sliding scale dose subcut TIDAC Protocol: Insulin Correction Scale Less than or equal to 110 ---- Give (units): 0 111 to 150 Give (units): 0 151 to 200 Give (units): 0 201 to 250 Give (units): 2 251 to 300 Give (units): 4 301 to 350 Give (units): 6 Greater than 350 Give (units): 8 Call MD if Blood Glucose > : 400 metoprolol tartrate 25 mg tablet 25 mg PO BID fluticasone propion-salmeterol [Advair HFA] 115-21 mcg/actuation Hfa Aerosol Inhaler 2 puff INHALATION BID insulin glargine 100 unit/mL (3 mL) Insulin Pen 10 unit SUBCUT QPM magnesium oxide 400 mg magnesium Tablet 400 mg PO DAILY azithromycin 500 mg tablet 500 mg PO DAILY 2 Days Qty: 2 0RF Rx Instructions: start on day 2 of therapy
--- NOTE | 2023-08-21 19:14 | ECG_ITS ---
Test Reason : ABDOMINAL PAIN Blood Pressure : / mmHG Vent. Rate : 084 BPM Atrial Rate : 000 BPM P-R Int : 000 ms QRS Dur : 106 ms QT Int : 374 ms P-R-T Axes : 000 -30 130 degrees QTc Int : 441 ms Atrial fibrillation Left axis deviation Minimal voltage criteria for LVH, may be normal variant ( [place] product ) Nonspecific ST and T wave abnormality Abnormal ECG When compared with ECG of 12-MAR-2023 19:12, ST more depressed Lateral leads T wave inversion now evident in Lateral leads Referred By: Luca Marques Electronically Signed By:Kyle Shaw
[2023-08-21] MEDS: ondansetron HCL 4 MG/2 ML VIAL IVPUSH (19:50)
[2023-08-21] MEDS: 0.9 % Sodium Chloride 1,000 ML 999 ML IV (19:51)
--- NOTE | 2023-08-21 20:01 | PC.NURSE ---
this rn assumed care of pt. pt confused and alert to self only. provider at bedside. 22G placed in right hand, fluids hanging, labs obtained and pt medicated per aug. pt producing green vomitis at this time.
[2023-08-21 20:07] LABS: Hematocrit 43.7 % (42.0-52.0); Mean Corpuscular Hemoglobin 30.3 pg (27.0-33.0); Mean Corpuscular Volume 94.6 fL (80.0-98.0); Mean Platelet Volume 13.3 fL (9.4-12.4); PLT CLUMP 1; Red Blood Count 4.62 X10*6/uL (4.60-5.80)
[2023-08-21 20:10] VITALS: BP 163/77; PULSE 80; RESP 16; TEMP 36.4; O2SAT 90
[2023-08-21 20:15] LABS: Partial Thromboplastin Time 31.1 SEC (26.0-36.8)
[2023-08-21] MEDS: diphenhydrAMINE HCL 50 MG/ML VIAL 25 MG IVPUSH (20:21)
[2023-08-21] MEDS: Metoclopramide HCl 10 MG/2 ML VIAL IVPUSH (20:21)
--- NOTE | 2023-08-21 20:25 | PC.NURSE ---
pt vomiting green bile at this time, aware, pt medicated per new MAR orders.
[2023-08-21 20:43] LABS: Alanine Aminotransferase 11 U/L (0-40); Albumin Level 3.7 g/dL (3.5-5.0); Alkaline Phosphatase 92 U/L (39-117); Anion Gap 11 (12-20); Aspartate Amino Transferase 16 U/L (5-37); Bilirubin Total 0.3 mg/dL (0.0-1.0); Blood Urea Nitrogen 23 mg/dL (9-16); Carbon Dioxide 26 mmol/L (22-29); Chloride 108 mmol/L (96-108); Estimated Glomerular Filt Rate > 60; Glucose Random 204 mg/dL (60-115); Lipase 13 U/L (8-78); Potassium 4.4 mmol/L (3.3-5.1); Sodium 141 mmol/L (135-145)
[2023-08-21 20:51] LABS: SLIDE REVIEW MANUAL DIFF
[2023-08-21 20:55] LABS: Band Neutrophils Percent 2 % (3-5); Lymphocytes Percent Manual 7 % (20-40); Monocytes Percent Manual 2 % (2-11); Neutrophils Percent Manual 89 % (45-73); Ovalocytes 1+ (5-14) /OIF; RBC Morphology NOTED
[2023-08-21 20:56] LABS: Platelet Estimate DECREASED (NORMAL); Platelet Morphology Comment NORMAL
[2023-08-21 20:57] LABS: Lymphocytes Absolute Manual 0.6 X10*3/uL (1.2-4.9); Monocytes Absolute Manual 0.2 X10*3/uL (0.1-1.2); Neutrophils Absolute Manual 8.2 X10*3/uL (2.0-8.3); Platelet Count 136 X10*3/uL (160-400)
[2023-08-21 20:57] LABS: Influenza A PCR NEGATIVE (Negative); Influenza B PCR NEGATIVE (Negative); Resp Syncy Virus RNA Qual PCR NEGATIVE (Negative); SARS COV2 PCR INHOUSE NEGATIVE (Negative)
[2023-08-21 22:00] VITALS: BP 150/75; PULSE 98; RESP 20; O2SAT 93
--- NOTE | 2023-08-21 22:24 | MHC.EDTECH ---
Pt was assisted with a partial bed bath. Pt needed total assistance of 2. Pt's linens and hospital gown were changed. Pt has not voided. Pt tolerated activity well. Pt fell back asleep. Will continue to monitor.
--- NOTE | 2023-08-21 23:22 | PC.NURSE ---
attempted to give hand off report to [facility] x2. no answer at this time.
[2023-08-21 23:34] VITALS: BP 163/71; PULSE 78; RESP 20; O2SAT 95
--- NOTE | 2023-08-22 00:44 | PC.NURSE ---
ems at bedside to transport pt back to [facility].
== END 2023-08-22 00:45 | disposition home or self-care (01) ==
PROVIDERS: Emergency Provider Emergency Medicine Emergency Medical Services; PCP Emergency Medicine
DX: B34.9 Viral infection, unspecified (principal); E86.0 Dehydration; R11.2 Nausea with vomiting, unspecified; I48.91 Unspecified atrial fibrillation; R13.10 Dysphagia, unspecified; Z79.01 Long term (current) use of anticoagulants; Z11.52 Encounter for screening for COVID-19; Z20.822 Contact with and (suspected) exposure to COVID-19; Z79.899 Other long term (current) drug therapy
CPT/HCPCS: 0241U; 36415; 80053; 83690; 84484; 85007; 85025; 85027; 85730; 93005; 96361; 96374; 96375; 99284; 99285; J1200; J2405; J2765

== ENCOUNTER → 2023-08-21 19:14 | Outpatient (BNV) | payer OTHER, SELFPAY | PROVIDERS: Emergency Provider Emergency Medicine Emergency Medical Services; PCP Emergency Medicine; Visit Provider Internal Medicine Cardiovascular Disease | DX: I48.91 Unspecified atrial fibrillation (principal); R94.31 Abnormal electrocardiogram [ECG] [EKG] | CPT/HCPCS: 93010 ==